=== PATIENT | female | born 1980 | race Caucasian/White ===

== ENCOUNTER 2017-12-06 09:02 | Inpatient (IN) | payer BC ==
[2017-12-06 09:09] VITALS: BMI 24.7
--- NOTE | 2017-12-06 12:05 | HP ---
COWS - Scale Resting Pulse: 0= [place] 80 or Below Sweatin= Chills/Flushing Restless Observation: 3= Extraneous Movement Pupil Size: 2= Moderately Dilated Bone or Joint Aches: 4=Acute Joint/Muscle Pain Runny Nose/ Eye Tearin= Constantly Teary/Runny GI Upset > 30mins: 1= Stomach Cramp Tremor Observation: 1= Tremor [place], Not Seen Yawning Observation: 2= >3x During Session Anxiety or Irritability: 1=Feels Anxious/Irritable Goose Flesh Skin: 0=Smooth Skin COWS Score: 19 Admission ROS S - HPI Chief Complaint: HEROIN WITHDRAWAL SX Allergies/Adverse Reactions: Allergies Allergy/AdvReac Type Severity Reaction Status Date / Time No Known Allergies Allergy Verified 12/06/17 09:30 History of Present Illness: 37 Y/O H/FEMALE WITH A HX OF HEROIN , STREET METHADONE AND CRACK DEPENDENCE SEEKING DETOX [place]. PT STATES THIS IS HER FIRST TIME HERE AND FIRST TIME IN DETOX. REPORTS "I TRIED TO STOP ON MY OWN BUT IT DID NOT WORK". PT STATES HE WAS AT [facility] LAST NIGHT FOR WITHDRAWAL SX AND DISCHARGED THIS MORNING FOR REFERRAL TO DETOX. DENIES ANY MEDICAL OR PSYCH HX. Exam Limitations: No Limitations - Ebola screening Have you traveled outside of the country in the last 21 days: No (N) Have you had contact with anyone from an Ebola affected area: No Have you been sick,other than usual withdrawal symptoms: No Do you have a fever: No - Review of Systems Constitutional: Chills, Night Sweats, Unintentional Wgt. Loss EENT: reports: Tearing, Nose Congestion, Dental Problems (MISSING TEETH) Respiratory: reports: No Symptoms reported Cardiac: reports: Lightheadedness GI: reports: Constipated, Diarrhea, Nausea, Poor Fluid Intake, Vomiting : reports: No Symptoms Reported Musculoskeletal: reports: Back Pain, Joint Pain, Muscle Pain Integumentary: reports: Bruising Neuro: reports: Headache, Unsteady Gait (WHEN HIGH ON DRUGS), Dizziness Endocrine: reports: No Symptoms Reported Hematology: reports: No Symptoms Reported Psychiatric: reports: Orientated x3 Other Systems: Reviewed and Negative Patient History - Patient Medical History Hx Anemia: No Hx Asthma: No Hx Chronic Obstructive Pulmonary Disease (COPD): No Hx Cardiac Disorders: No Hx Hypertension: No Hx Hypercholesterolemia: No HX Cerebrovascular Accident: No Hx Seizures: No Hx Diabetes: No Hx Gastrointestinal Disorders: No Hx Genitourinary Disorders: No Hx Sexually Transmitted Disorders: No Hx Renal Disease (ESRD): No Hx Thyroid Disease: No Hx Human Immunodeficiency Virus (HIV): No (NEGATIVE HX) Hx Hepatitis C: Yes (NOT TREATED) Hx Depression: No Hx Suicide Attempt: No (DENIES S/I) Hx Bipolar Disorder: No Hx Schizophrenia: No - Patient Surgical History Past Surgical History: No Hx Neurologic Surgery: No Hx Cataract Extraction: No Hx Cardiac Surgery: No Hx Lung Surgery: No Hx Breast Surgery: No Hx Breast Biopsy: No Hx Abdominal Surgery: No Hx Appendectomy: No Hx Cholecystectomy: No Hx Genitourinary Surgery: No Hx Section: No Hx Orthopedic Surgery: No Hx Hysterectomy: No Anesthesia Reaction: No - PPD History Previous Implant?: Yes Documented Results: Negative w/o proof Implanted On Prior [facility] Admission?: No PPD to be Administered?: Yes - Reproductive History Patient is a Female of Child Bearing Age (11 -55 yrs old): Yes Last Menstrual Period: 09/28/17 Patient : No - Smoking Cessation Smoking history: Current every day smoker Have you smoked in the past 12 months: Yes Aproximately how many cigarettes per day: 20 Hx Chewing Tobacco Use: No Initiated information on smoking cessation: Yes 'Breaking Loose' booklet given: 12/06/17 - Substance & Tx. History Hx Alcohol Use: No (DENIES) Hx Substance Use: Yes (HEROIN/CRACK) Substance Use Type: Cocaine, Heroin Hx Substance Use Treatment: No (DENIES PREVIOUS TX) - Substances Abused Heroin Route: Injection Frequency: Daily Amount used: 10 bags Age of first use: 26 Date of Last Use: 12/05/17 Crack Route: Smoking Frequency: Daily Amount used: $200 Age of first use: 13 Date of Last Use: 12/05/17 street methadone Route: Oral Frequency: 1-3 times last 30 days Amount used: 30 mg. Age of first use: 15 Date of Last Use: 12/05/17 Family Disease History - Family Disease History Family History: Denies Admission Physical Exam BHS - Vital Signs Vital Signs: Vital Signs - 24 hr 12/06/17 09:06 Temperature 97.4 F L Pulse Rate 69 Respiratory 20 Rate Blood Pressure 112/69 - Physical General Appearance: Yes: Moderate Distress, Thin, Irritable HEENTM: Yes: EOMI, Normocephalic, DAVID, Pharynx Normal, Nasal Congestion, Other (TEARY EYES) Respiratory: Yes: Chest Non-Tender, Lungs Clear, Normal Breath Sounds, No Respiratory Distress Neck: Yes: No masses,lesions,Nodules, Supple, Trachea in good position Breast: Yes: Breast Exam Deferred Cardiology: Yes: Regular Rhythm, Regular Rate, S1, S2 Abdominal: Yes: Normal Bowel Sounds, Non Tender, Flat, Soft Genitourinary: Yes: Other (N/C) Back: Yes: Within Normal Limits Musculoskeletal: Yes: full range of Motion, Gait Steady Extremities: Yes: Normal Range of Motion, Non-Tender 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: 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: 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, Fully Oriented, Alert, Motor Strength 5/5 Integumentary: Yes: Dry, Warm, Track [place] (FOREARMS-NO REDNESS OR SWELLING) Lymphatic: Yes: Within Normal Limits, Other (SCARS ON LOWER EXTREMITIES) - Diagnostic (1) Opioid dependence with withdrawal Current Visit: Yes Status: Acute (2) Weight decrease Current Visit: Yes Status: Acute (3) IVDU (intravenous drug user) Current Visit: Yes Status: Chronic Comment: TRACKS ON EXTREMITIES Cleared for Admission [facility] - Detox or Rehab [facility] Level of Care: Medically Managed Detox Regimen/Protocol: Methadone [facility] Breath Alcohol Content Breath Alcohol Content: 0 Urine Pregancy Test - Result Urine Test Results: Negative- NO Line Present Urine Drug Screen - Results Drug Screen Negative: No Urine Drug Screen Results: ALINE-Cocaine, OPI-Opiates, MTD-Methadone
[2017-12-06] MEDS ORDERED: MAG HYDROX/AL HYDROX/SIMETH 30 ML UNIT-DOSE CUP PO PRN (12:15)
[2017-12-06] MEDS ORDERED: ACETAMINOPHEN 325 MG TABLET (FP) PO PRN (12:15)
[2017-12-06] MEDS ORDERED: MENTHOL/PHENOL 1 EACH UD MM PRN (12:15)
[2017-12-06] MEDS ORDERED: guaiFENesin/D-METHORPHAN HB 10 ML UNIT-DOSE CUPS PO PRN (12:15)
[2017-12-06] MEDS ORDERED: NICOTINE POLACRILEX 4 MG GUM BUC PRN (12:15)
[2017-12-06] MEDS ORDERED: P-EPHED 60MG/TRIPROLIDI 2.5MG TABLET PO PRN (12:15)
[2017-12-06] MEDS ORDERED: IBUPROFEN 400 MG TABLET (FP) PO PRN (12:15)
[2017-12-06] MEDS ORDERED: MAGNESIUM HYDROX 2400MG/30ML ORAL SUSPENSION 30 ML CUP PO PRN (12:15)
[2017-12-06] MEDS ORDERED: MAGNESIUM CITRATE 300 ML BOTTLE PO PRN (12:15)
[2017-12-06] MEDS ORDERED: LOPERAMIDE HCL 2 MG CAPSULE PO PRN (12:15)
[2017-12-06] MEDS ORDERED: METHADONE HCL 10 MG TABLET (FOR DETOX USE ONLY) PO ONE ×2 (12:20→23:00)
[2017-12-06] MEDS: diazePAM 5 MG TABLET PO PRN ×2 (13:01→22:27)
[2017-12-06] MEDS: NICOTINE 21 MG/24 HOURS TOPICAL PATCH TD SCH (13:09)
[2017-12-06 18:38] LABS: URINE APPEARANCE CLEAR; URINE BILIRUBIN NEGATIVE (<2.0 mg/dL); URINE BLOOD 1+ (NEGATIVE); URINE COLOR AMBER; URINE GLUCOSE (UA) NEGATIVE (NEGATIVE); URINE KETONE NEGATIVE (NEGATIVE); URINE LEUK ESTERASE NEGATIVE (NEGATIVE); URINE NITRITE NEGATIVE (NEGATIVE); URINE PROTEIN NEGATIVE (NEGATIVE); URINE UROBILINOGEN 4.0 E.U/dl mg/dL (0.2-1.0)
[2017-12-06 18:46] LABS: EPI CELLS RARE /HPF (FEW); URINE HYALINE CAST 5 /lpf; URINE MUCUS MANY
[2017-12-06] MEDS ORDERED: THIAMINE HCL 100 MG TABLET (FP) PO SCH (22:00)
[2017-12-06] MEDS ORDERED: MELATONIN 5 MG TABLETS PO PRN (22:00)
--- NOTE | 2017-12-07 09:50 | EKG ---
Test Reason : Blood Pressure : / mmHG Vent. Rate : 065 BPM Atrial Rate : 065 BPM P-R Int : 150 ms QRS Dur : 096 ms QT Int : 438 ms P-R-T Axes : 042 035 035 degrees QTc Int : 455 ms NORMAL SINUS RHYTHM WITH SINUS ARRHYTHMIA INCOMPLETE RIGHT BUNDLE BRANCH BLOCK NO PREVIOUS ECGS AVAILABLE Confirmed by ASAEL CUELLO MD ([id number]) on 12/07/2017 9:50:18 AM Referred By: Confirmed By:ASAEL CUELLO MD
[2017-12-07 09:51] LABS: HEMATOCRIT 39.6 % (32.4-45.2); HEMOGLOBIN 12.4 GM/dL (10.7-15.3); MCH 23.8 pg (25.7-33.7); MCHC 31.4 g/dl (32.0-36.0); MEAN CELL VOLUME 75.7 fl (80-96); MEAN PLT VOLUME 9.3 fl (7.5-11.1); PLATELET COUNT 211 K/MM3 (134-434); RBC 5.22 M/mm3 (3.60-5.2); WHITE BLOOD COUNT 4.7 K/mm3 (4.0-10.0)
[2017-12-07] MEDS ORDERED: PRENATAL VITAMINS W/ FOLIC ACID TABLET (FP) PO SCH (10:00)
[2017-12-07] MEDS ORDERED: METHADONE HCL 10 MG TABLET (FOR DETOX USE ONLY) PO ONE (10:00)
[2017-12-07 10:01] LABS: CHLORIDE 109 mmol/L (98-107); POTASSIUM 4.6 mmol/L (3.5-5.1); SODIUM 143 mmol/L (136-145)
[2017-12-07] MEDS: diazePAM 5 MG TABLET PO PRN (10:37)
[2017-12-07] MEDS: NICOTINE 21 MG/24 HOURS TOPICAL PATCH TD SCH (10:38)
[2017-12-07 10:50] LABS: ALBUMIN 2.9 g/dl (3.4-5.0); ALK PHOS 82 U/L (45-117); ANION GAP 9 (8-16); BILIRUBIN,TOTAL 0.4 mg/dL (0.2-1.0); BLOOD UREA NITROGEN 13 mg/dL (7-18); CALCIUM 8.9 mg/dL (8.5-10.1); CO2 25 mmol/L (21-32); CREATININE 0.8 mg/dL (0.55-1.02); GLUCOSE,RANDOM 94 mg/dL (74-106); SGOT/AST 24 U/L (15-37); SGPT/ALT 26 U/L (12-78)
[2017-12-07 11:18] LABS: SICKLE CELL SCREEN NEGATIVE (NEGATIVE)
--- NOTE | 2017-12-07 14:05 | PN ---
BHS COWS - Scale Resting Pulse: 0= [place] 80 or Below Sweatin= Chills/Flushing Restless Observation: 3= Extraneous Movement Pupil Size: 0= Normal to Room Light Bone or Joint Aches: 4=Acute Joint/Muscle Pain Runny Nose/ Eye Tearin= Nasal Congestion GI Upset > 30mins: 1= Stomach Cramp Tremor Observation of Outstretched Hands: 2= Slight Tremor Visible Yawning Observation: 1= 1-2x During Session Anxiety or Irritability: 2=Irritable/Anxious Goose Flesh Skin: 0=Smooth Skin COWS Score: 15 BHS Progress Note (SOAP) Subjective: ANXIETY,SWEATS,ABDOMINAL CRAMPS/SPASMS,INTERMITTENT SLEEP.
[2017-12-07 18:03] VITALS: BP 97/60; PULSE 63; TEMP 99
--- NOTE | 2017-12-07 18:50 | PN ---
S Progress Note Note: Spoke with patient and discussed reasons for leaving AMA. Patient states has family reasons and did not go into detail. Discussed decreased tolerance and potential for overdose and patient states is aware and will be fine, based on past experience.
--- NOTE | 2017-12-07 18:55 | DS ---
[facility] Detox Discharge Summary Admission Date: 12/06/17 Discharge Date: 12/07/17 - History Present History: Opioid Dependence Additional Comments: Insists on leaving AMA despite review of detox protocol and review of potential relapse and overdose risks. - Physical Exam Results Vital Signs: Vital Signs Temperature 99.0 F 12/07/17 18:03 Pulse Rate 63 12/07/17 18:03 Respiratory Rate 18 12/07/17 18:03 Blood Pressure 97/60 12/07/17 18:03 O2 Sat by Pulse Oximetry (%) - Treatment Hospital Course: Detox Protocol Followed (Did not complete detox) - Medication Discharge Medications: Ambulatory Orders NK [No Known Home Medication] 12/06/17 - Diagnosis (1) Opioid dependence with withdrawal Current Visit: Yes Status: Acute - AMA Did Patient Leave Against Medical Advice: Yes
[2017-12-08] MEDS ORDERED: METHADONE HCL 5 MG TABLET (FOR DETOX USE ONLY) PO ONE (10:00)
[2017-12-09] MEDS ORDERED: METHADONE HCL 5 MG TABLET (FOR DETOX USE ONLY) PO ONE (10:00)
[2017-12-10] MEDS ORDERED: METHADONE HCL 10 MG TABLET (FOR DETOX USE ONLY) PO ONE (10:00)
[2017-12-11] MEDS ORDERED: METHADONE HCL 5 MG TABLET (FOR DETOX USE ONLY) PO ONE (06:00)
== END 2017-12-07 07:20 | disposition left against medical advice (07) | DRG 770 ==
LOC: YASAS 09:02 → Y6N 12:14
PROVIDERS: ADMIT Family Medicine Addiction Medicine; ATTEND Family Medicine Addiction Medicine
PROC: HZ2ZZZZ Detoxification Services for Substance Abuse Treatment (ICD-10-PCS; principal; 2017-12-06)
DX: F11.23 Opioid dependence with withdrawal (principal); F14.20 Cocaine dependence, uncomplicated; F17.210 Nicotine dependence, cigarettes, uncomplicated; B18.2 Chronic viral hepatitis C; Z87.898 Personal history of other specified conditions
CPT/HCPCS: 36415; 80053; 81003; 81015; 85027; 85660; 86593; 93005; 93010

== ENCOUNTER 2018-05-22 10:25 | Inpatient (IN) | payer BC ==
[2018-05-22 11:30] VITALS: BMI 27.6
--- NOTE | 2018-05-22 12:21 | HP ---
COWS - Scale Resting Pulse: 0= [place] 80 or Below Sweatin= Chills/Flushing Restless Observation: 3= Extraneous Movement Pupil Size: 1= Pupils >than Normal Bone or Joint Aches: 1= Mild Discomfort Runny Nose/ Eye Tearin= Runny Nose/Eyes GI Upset > 30mins: 1= Stomach Cramp Tremor Observation: 1= Tremor [place], Not Seen Yawning Observation: 0= None Anxiety or Irritability: 2=Irritable/Anxious Goose Flesh Skin: 0=Smooth Skin COWS Score: 12 CIWA Score Nausea/Vomitin Muscle Tremors: 1-None Visible, but [place] Anxiety: 2 Agitation: 2 Paroxysmal Sweats: 2 Orientation: 0-Oriented Tacttile Disturbances: 2-Mild Itch/Numbness/Burn Auditory Disturbances: 0-None Visual Disturbances: 0-None Headache: 0-None Present CIWA-Ar Total Score: 11 - Admission Criteria [facility]ASAS Guidelines: Admission for Medically Managed Detox: Requires at least one of the followin. CIWA greater than 12 2. Seizures within the past 24 hours 3. Delirium tremens within the past 24 hours 4. Hallucinations within the past 24 hours 5. Acute intervention needed for co occurring medical disorder 6. Acute intervention needed for co occurring psychiatric disorder 7. Severe withdrawal that cannot be handled at a lower level of care (continued vomiting, continued diarrhea, abnormal vital signs) requiring intravenous medication and/or fluids 8. Patient presents the following: CIWA greater than 12 Admission Criteria Met: Admission criteria met Admission ROS [facility] Chief Complaint: I need to detox from drugs Allergies/Adverse Reactions: Allergies Allergy/AdvReac Type Severity Reaction Status Date / Time hydromorphone [From Dilaudid] Allergy Severe Itching Verified 05/22/18 11:36 meperidine [From Demerol] Allergy Severe Itching Verified 05/22/18 11:36 History of Present Illness: 38 y/o f pt with h/o polysubstance dep starting around age 15 seeking detox. Exam Limitations: No Limitations - Ebola screening Have you traveled outside of the country in the last 21 days: No Have you had contact with anyone from an Ebola affected area: No Have you been sick,other than usual withdrawal symptoms: No - Review of Systems Constitutional: Changes in sleep, Unintentional Wgt. Loss (over one and a half years) EENT: reports: Nose Congestion (rhinorrea) Respiratory: reports: Other (h/o rt chest tube for abscess) Cardiac: reports: Other (h/o endocarditis) GI: reports: Indigestion, Abdominal cramping : reports: No Symptoms Reported Musculoskeletal: reports: Muscle Pain (leg pains) Integumentary: reports: Lesions (excoriations over ,face arms and chest), Pruritus, Rash Neuro: reports: No Symptoms reported Endocrine: reports: No Symptoms Reported Hematology: reports: No Symptoms Reported Psychiatric: reports: Anxious, Depressed Other Systems: Reviewed and Negative Patient History - Patient Medical History Hx Anemia: No Hx Asthma: No Hx Chronic Obstructive Pulmonary Disease (COPD): No Hx Cancer: No Hx Cardiac Disorders: No Hx Congestive Heart Failure: No Hx Hypertension: No Hx Hypercholesterolemia: No Hx Pacemaker: No HX Cerebrovascular Accident: No Hx Seizures: No Hx Diabetes: No Hx Gastrointestinal Disorders: No Hx Liver Disease: No Hx Genitourinary Disorders: No Hx Sexually Transmitted Disorders: No Hx Renal Disease (ESRD): No Hx Thyroid Disease: No Hx Human Immunodeficiency Virus (HIV): No (2017 NEGATIVE ) Hx Hepatitis C: Yes (NOT TREATED) Hx Depression: Yes Hx Suicide Attempt: Yes (Pt tried to overdose in 2013) Hx Bipolar Disorder: No Hx Schizophrenia: No - Patient Surgical History Past Surgical History: No Hx Neurologic Surgery: No Hx Cataract Extraction: No Hx Cardiac Surgery: No Hx Lung Surgery: Yes (R chest tube for lung abscess in 2014 [facility]) Hx Breast Surgery: No Hx Breast Biopsy: No Hx Abdominal Surgery: No Hx Appendectomy: No Hx Cholecystectomy: Yes (1997) Hx Genitourinary Surgery: No Hx Section: No Hx Orthopedic Surgery: No Hx Hysterectomy: No Anesthesia Reaction: No - PPD History Previous Implant?: Yes Documented Results: Negative w/proof Implanted On Prior R Admission?: Yes Date: 12/08/17 PPD to be Administered?: No - Reproductive History Patient is a Female of Child Bearing Age (11 -55 yrs old): Yes Last Menstrual Period: 09/28/17 LMP comment: periods cease with heroin use Patient : No - Smoking Cessation Smoking history: Current every day smoker Have you smoked in the past 12 months: Yes Aproximately how many cigarettes per day: 20 Hx Chewing Tobacco Use: No Initiated information on smoking cessation: Yes 'Breaking Loose' booklet given: 05/22/18 - Substance & Tx. History Hx Alcohol Use: Yes Hx Substance Use: Yes Substance Use Type: Alcohol, Cocaine, Heroin Hx Substance Use Treatment: Yes ([facility]) - Substances Abused Alcohol Route: Oral Frequency: Daily Amount used: 1-2 pints vodka Age of first use: 11 Date of Last Use: 05/22/18 Heroin Route: Injection Frequency: Daily Amount used: 20 bags Age of first use: 15 Date of Last Use: 05/22/18 Crack Route: Smoking Frequency: Daily Amount used: $100-150 Age of first use: 15 Date of Last Use: 05/22/18 Family Disease History - Family Disease History Family Disease History: [place]: Grandparent (stomach) Admission Physical Exam BHS - Vital Signs Vital Signs: Vital Signs - 24 hr 05/22/18 11:27 Temperature 96.9 F L Pulse Rate 74 Respiratory 20 Rate Blood Pressure 118/72 38 y/o f pt who is disheveled , restless but aox3 with multiple excoriated areas -face , arms ,chest and hands . - Physical General Appearance: Yes: Disheveled, Irritable, Anxious HEENTM: Yes: EOMI, Hearing grossly Normal, Normocephalic, Normal Voice, DAVID Respiratory: Yes: Chest Non-Tender, Lungs Clear, Normal Breath Sounds, No Respiratory Distress, Surgical Scar (rt mid axillary line - C-Tube) Neck: Yes: Supple, Trachea in good position Breast: Yes: Breast Exam Deferred Cardiology: Yes: Regular Rhythm, Regular Rate, S1, S2 Abdominal: Yes: Non Tender, Flat, Soft, Increased Bowel Sounds, Surgical Scar ( rt upper quad-diagonal) Genitourinary: Yes: Frequency Back: Yes: Decreased Range of Motion Musculoskeletal: Yes: Back pain, Muscle Pain Extremities: Yes: Tremors 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: 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: 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, Fully Oriented, Alert, Motor Strength 5/5 Integumentary: Yes: Erythema (excoriated , denuded areas , multiple track choe , arms, hands), Moist, Rash (t.pedis), Track [place] Lymphatic: Yes: Adenopathy - Diagnostic (1) Chronic alcoholism Current Visit: Yes Status: Chronic (2) Crack cocaine use Current Visit: Yes Status: Chronic (3) Opioid dependence with withdrawal Current Visit: Yes Status: Chronic (4) IVDU (intravenous drug user) Current Visit: Yes Status: Chronic Comment: TRACKS ON EXTREMITIES (5) Bipolar 1 disorder Current Visit: Yes Status: Chronic (6) H/O bacterial endocarditis Current Visit: No Status: Resolved (7) Drug-induced pruritus Current Visit: Yes Status: Chronic (8) Tinea pedis Current Visit: Yes Status: Acute Cleared for Admission [facility] - Detox or Rehab [facility] Level of Care: Medically Managed Detox Regimen/Protocol: Methadone/Valium Claeared for Rehab Admission: No S Breath Alcohol Content Breath Alcohol Content: 0 Urine Pregancy Test - Result Urine Test Results: Negative- NO Line Present Urine Drug Screen - Results Drug Screen Negative: No Urine Drug Screen Results: ALINE-Cocaine, OPI-Opiates, FEN-Fentanyl
[2018-05-22] MEDS ORDERED: guaiFENesin/D-METHORPHAN HB 10 ML UNIT-DOSE CUPS PO PRN (12:50)
[2018-05-22] MEDS ORDERED: IBUPROFEN 400 MG TABLET (FP) PO PRN (12:50)
[2018-05-22] MEDS ORDERED: ACETAMINOPHEN 325 MG TABLET (FP) PO PRN (12:50)
[2018-05-22] MEDS ORDERED: hydrOXYzine PAMOATE 25 MG CAPSULE (FP) PO PRN (12:50)
[2018-05-22] MEDS ORDERED: MAGNESIUM CITRATE 300 ML BOTTLE PO PRN (12:50)
[2018-05-22] MEDS ORDERED: MAGNESIUM HYDROX 2400MG/30ML ORAL SUSPENSION 30 ML CUP PO PRN (12:50)
[2018-05-22] MEDS ORDERED: P-EPHED 60MG/TRIPROLIDI 2.5MG TABLET PO PRN (12:50)
[2018-05-22] MEDS ORDERED: LOPERAMIDE HCL 2 MG CAPSULE PO PRN (12:50)
[2018-05-22] MEDS ORDERED: MAG HYDROX/AL HYDROX/SIMETH 30 ML UNIT-DOSE CUP PO PRN (12:50)
[2018-05-22] MEDS ORDERED: MENTHOL/PHENOL 1 EACH UD MM PRN (12:50)
[2018-05-22] MEDS ORDERED: diazePAM 5 MG TABLET PO PRN (12:50)
[2018-05-22] MEDS ORDERED: NICOTINE POLACRILEX 4 MG GUM BUC PRN (12:50)
[2018-05-22] MEDS ORDERED: diazePAM 5 MG TABLET PO SCH (14:00)
[2018-05-22] MEDS ORDERED: diazePAM 5 MG TABLET PO ONE (14:30)
[2018-05-22] MEDS ORDERED: METHADONE HCL 10 MG TABLET (FOR DETOX USE ONLY) PO ONE ×2 (14:30→23:00)
[2018-05-22] MEDS ORDERED: chlordiazePOXIDE HCL 25 MG CAPSULE PO PRN (15:43)
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
[2018-05-22] MEDS: chlordiazePOXIDE HCL 25 MG CAPSULE PO SCH ×2 (18:12→22:28)
[2018-05-22] MEDS: THIAMINE HCL 100 MG TABLET (FP) PO SCH (22:29)
[2018-05-22] MEDS: TOLNAFTATE 1% CREAM 15 GM TUBE TP SCH (22:38)
[2018-05-22] MEDS: BACITRACIN 0.9 GM PACKET TP SCH (22:38)
[2018-05-22 23:24] LABS: URINE APPEARANCE CLEAR; URINE BILIRUBIN NEGATIVE (<2.0 mg/dL); URINE COLOR YELLOW; URINE GLUCOSE (UA) NEGATIVE (NEGATIVE); URINE KETONE NEGATIVE (NEGATIVE); URINE LEUK ESTERASE NEGATIVE (NEGATIVE); URINE NITRITE NEGATIVE (NEGATIVE); URINE PROTEIN NEGATIVE (NEGATIVE); URINE UROBILINOGEN NEGATIVE mg/dL (0.2-1.0)
[2018-05-23] MEDS: chlordiazePOXIDE HCL 25 MG CAPSULE PO SCH ×4 (05:48→22:23)
[2018-05-23] MEDS ORDERED: METHADONE HCL 10 MG TABLET (FOR DETOX USE ONLY) PO SCH (10:00)
[2018-05-23] MEDS: PRENATAL VITAMINS W/ FOLIC ACID TABLET (FP) PO SCH (10:33)
[2018-05-23] MEDS: BACITRACIN 0.9 GM PACKET TP SCH ×2 (10:33→22:23)
[2018-05-23] MEDS: TOLNAFTATE 1% CREAM 15 GM TUBE TP SCH ×2 (10:34→22:23)
[2018-05-23] MEDS: NICOTINE 21 MG/24 HOURS TOPICAL PATCH TD SCH (10:34)
[2018-05-23 11:03] LABS: HEMATOCRIT 41.1 % (32.4-45.2); HEMOGLOBIN 12.4 GM/dL (10.7-15.3); MCHC 30.1 g/dl (32.0-36.0); MEAN CELL VOLUME 76.5 fl (80-96); MEAN PLT VOLUME 10.3 fl (7.5-11.1); PLATELET COUNT 226 K/MM3 (134-434); RBC 5.38 M/mm3 (3.60-5.2); RDW 16.7 % (11.6-15.6); WHITE BLOOD COUNT 4.9 K/mm3 (4.0-10.0)
--- NOTE | 2018-05-23 11:10 | PN ---
[facility] CIWA - CIWA Score Nausea/Vomitin-No Nausea/No Vomiting Muscle Tremors: 3 Anxiety: 3 Agitation: 3 Paroxysmal Sweats: 3 Orientation: 0-Oriented Tacttile Disturbances: 0-None Auditory Disturbances: 0-None Visual Disturbances: 0-None Headache: 0-None Present CIWA-Ar Total Score: 12 BHS COWS - Scale Resting Pulse: 0= [place] 80 or Below Sweatin=Flushed/Facial Moisture Restless Observation: 1= Difficult to Sit Still Pupil Size: 0= Normal to Room Light Bone or Joint Aches: 1= Mild Discomfort Runny Nose/ Eye Tearin= Nasal Congestion GI Upset > 30mins: 2= Nausea/Diarrhea Tremor Observation of Outstretched Hands: 2= Slight Tremor Visible Yawning Observation: 2= >3x During Session Anxiety or Irritability: 2=Irritable/Anxious Goose Flesh Skin: 0=Smooth Skin COWS Score: 13 S Progress Note (SOAP) Subjective: sweats shakes tired irritable agitation interrupted sleep body aches Objective: 05/23/18 11:09 Vital Signs Temperature 97.7 F 05/23/18 10:34 Pulse Rate 73 05/23/18 10:34 Respiratory Rate 18 05/23/18 10:34 Blood Pressure 120/76 05/23/18 10:34 O2 Sat by Pulse Oximetry (%) Laboratory Tests 05/22/18 05/23/18 22:00 07:40 WBC 4.9 RBC 5.38 H Hgb 12.4 Hct 41.1 MCV 76.5 L MCH 23.0 L MCHC 30.1 L RDW 16.7 H Plt Count 226 MPV 10.3 D Urine Color Yellow Urine Appearance Clear Urine pH 6.0 Ur Specific [place] 1.019 Urine Protein Negative Urine Glucose (UA) Negative Urine Ketones Negative Urine Blood Negative Urine Nitrite Negative Urine Bilirubin Negative Urine Urobilinogen Negative Ur Leukocyte Esterase Negative labs pending aaox3 ambulating no acute distress Assessment: 05/23/18 11:09 withdrawal sx Plan: continue detox increase fluids labs pending
[2018-05-23 11:15] LABS: ALK PHOS 114 U/L (45-117); ANION GAP 8 MMOL/L (8-16); BILIRUBIN,TOTAL 0.3 mg/dL (0.2-1); BLOOD UREA NITROGEN 19 mg/dL (7-18); CALCIUM 8.3 mg/dL (8.5-10.1); CHLORIDE 108 mmol/L (98-107); CO2 24 mmol/L (21-32); CREATININE 0.9 mg/dL (0.55-1.3); GLUCOSE,RANDOM 86 mg/dL (74-106); POTASSIUM 4.6 mmol/L (3.5-5.1); SGOT/AST 20 U/L (15-37); SGPT/ALT 21 U/L (13-61); SODIUM 139 mmol/L (136-145); TOT PROT 6.6 g/dl (6.4-8.2)
[2018-05-23 11:44] LABS: SICKLE CELL SCREEN NEGATIVE (NEGATIVE)
[2018-05-23 13:19] LABS: RPR REACTIVE 1:2 (NONREACTIVE)
[2018-05-23] MEDS: MELATONIN 5 MG TABLETS PO PRN (22:23)
[2018-05-23] MEDS: THIAMINE HCL 100 MG TABLET (FP) PO SCH (22:23)
[2018-05-24] MEDS: chlordiazePOXIDE HCL 25 MG CAPSULE PO SCH ×2 (06:02→10:22)
[2018-05-24 09:52] LABS: TREPONEMA ANTIBODY REACTIVE (NONREACTIVE)
[2018-05-24] MEDS ORDERED: diazePAM 5 MG TABLET PO SCH (10:00)
[2018-05-24] MEDS: BACITRACIN 0.9 GM PACKET TP SCH ×2 (10:22→22:25)
[2018-05-24] MEDS: PRENATAL VITAMINS W/ FOLIC ACID TABLET (FP) PO SCH (10:22)
[2018-05-24] MEDS: TOLNAFTATE 1% CREAM 15 GM TUBE TP SCH ×2 (10:22→22:25)
[2018-05-24] MEDS: METHADONE HCL 5 MG TABLET (FOR DETOX USE ONLY) PO SCH (10:22)
[2018-05-24] MEDS: NICOTINE 21 MG/24 HOURS TOPICAL PATCH TD SCH (10:23)
--- NOTE | 2018-05-24 11:27 | PN ---
[facility] CIWA - CIWA Score Nausea/Vomitin-No Nausea/No Vomiting Muscle Tremors: 3 Anxiety: 3 Agitation: 3 Paroxysmal Sweats: 3 Orientation: 0-Oriented Tacttile Disturbances: 0-None Auditory Disturbances: 0-None Visual Disturbances: 0-None Headache: 0-None Present CIWA-Ar Total Score: 12 S COWS - Scale Resting Pulse: 0= [place] 80 or Below Sweatin=Flushed/Facial Moisture Restless Observation: 0= Sits Still Pupil Size: 0= Normal to Room Light Bone or Joint Aches: 1= Mild Discomfort Runny Nose/ Eye Tearin= Nasal Congestion GI Upset > 30mins: 0= None Tremor Observation of Outstretched Hands: 2= Slight Tremor Visible Yawning Observation: 2= >3x During Session Anxiety or Irritability: 1=Feels Anxious/Irritable Goose Flesh Skin: 0=Smooth Skin COWS Score: 9 S Progress Note (SOAP) Subjective: tired irritable body aches sweats chills Objective: 05/24/18 11:25 Vital Signs Temperature 99.3 F 05/24/18 10:15 Pulse Rate 77 05/24/18 10:15 Respiratory Rate 18 05/24/18 10:15 Blood Pressure 100/59 L 05/24/18 10:15 O2 Sat by Pulse Oximetry (%) Laboratory Tests 05/22/18 05/23/18 05/23/18 22:00 07:40 07:40 WBC 4.9 RBC 5.38 H Hgb 12.4 Hct 41.1 MCV 76.5 L MCH 23.0 L MCHC 30.1 L RDW 16.7 H Plt Count 226 MPV 10.3 D Sickle Cell Screen Negative Sodium Potassium Chloride Carbon Dioxide Anion Gap BUN Creatinine Creat Clearance w eGFR Random Glucose Calcium Total Bilirubin AST ALT Alkaline Phosphatase Total Protein Albumin Urine Color Yellow Urine Appearance Clear Urine pH 6.0 Ur Specific [place] 1.019 Urine Protein Negative Urine Glucose (UA) Negative Urine Ketones Negative Urine Blood Negative Urine Nitrite Negative Urine Bilirubin Negative Urine Urobilinogen Negative Ur Leukocyte Esterase Negative RPR Titer T.pallidum Ab (MHA) HIV 1&2 Antibody Screen Negative HIV P24 Antigen Negative 05/23/18 05/23/18 07:40 07:40 WBC RBC Hgb Hct MCV MCH MCHC RDW Plt Count MPV Sickle Cell Screen Sodium 139 Potassium 4.6 Chloride 108 H Carbon Dioxide 24 Anion Gap 8 BUN 19 H Creatinine 0.9 Creat Clearance w eGFR > 60 Random Glucose 86 Calcium 8.3 L Total Bilirubin 0.3 AST 20 ALT 21 Alkaline Phosphatase 114 Total Protein 6.6 Albumin 3.0 L Urine Color Urine Appearance Urine pH Ur Specific [place] Urine Protein Urine Glucose (UA) Urine Ketones Urine Blood Urine Nitrite Urine Bilirubin Urine Urobilinogen Ur Leukocyte Esterase RPR Titer Reactive 1:2 H D T.pallidum Ab (MHA) non Reactive HIV 1&2 Antibody Screen HIV P24 Antigen pt states she doesnt remember ever having been exposed to syphilis no tx required at this time aaox3 lying in bed no acute distress Assessment: 05/24/18 11:26 withdrawal sx Plan: continue detox increase fluids
[2018-05-24] MEDS ORDERED: FLU VACCINE QUAD 60 MCG/0.5 ML (MDV 18-19) IM ONE (12:00)
[2018-05-24] MEDS: chlordiazePOXIDE 5 MG CAPSULE PO SCH ×2 (17:33→22:25)
[2018-05-24] MEDS: THIAMINE HCL 100 MG TABLET (FP) PO SCH (22:25)
[2018-05-24] MEDS: MELATONIN 5 MG TABLETS PO PRN (22:25)
[2018-05-25] MEDS: chlordiazePOXIDE 5 MG CAPSULE PO SCH ×2 (05:27→10:05)
[2018-05-25 06:32] VITALS: BP 107/65; PULSE 74; TEMP 97.3
[2018-05-25] MEDS: BACITRACIN 0.9 GM PACKET TP SCH (10:00)
[2018-05-25] MEDS: NICOTINE 21 MG/24 HOURS TOPICAL PATCH TD SCH (10:05)
[2018-05-25] MEDS: METHADONE HCL 5 MG TABLET (FOR DETOX USE ONLY) PO SCH (10:05)
[2018-05-25] MEDS: PRENATAL VITAMINS W/ FOLIC ACID TABLET (FP) PO SCH (10:05)
[2018-05-25] MEDS: TOLNAFTATE 1% CREAM 15 GM TUBE TP SCH (10:05)
--- NOTE | 2018-05-25 11:41 | PN ---
[facility] Progress Note Note: PT WALKED UP TO PROVIDER STATING "I WANT TO LEAVE, THEY HAVE MY CLOTHES LOCKED UP" WHEN PROVIDER ASKED WHY SHE WANTED TO LEAVE OR IF ANYTHING CAN BE DONE TO HELP/ PREVENT IT, PT REPLIED "I WANT TO LEAVE AND THAT'S IT, AM NOT DISCUSSING IT". SHE DENIED SI/HI DENIES ANY COMPLAINT ANXIOUS, NO RESP NOR ACUTE DISTRESS NOTED
--- NOTE | 2018-05-25 11:50 | DS ---
[facility] Detox Discharge Summary Admission Date: 05/22/18 Discharge Date: 05/25/18 - History Additional Comments: PT SIGNING OUT AMA FROM UNIT PLS SEE PROGRESS NOTE DENIES HOME MEDS - Physical Exam Results Vital Signs: Vital Signs Temperature 97.3 F L 05/25/18 06:00 Pulse Rate 74 05/25/18 06:00 Respiratory Rate 18 05/25/18 06:00 Blood Pressure 107/65 05/25/18 06:00 O2 Sat by Pulse Oximetry (%) - Medication Discharge Medications: Ambulatory Orders NK [No Known Home Medication] 12/06/17 - Diagnosis (1) Alcohol dependence Current Visit: Yes Status: Acute Qualifiers: Substance use status: uncomplicated Qualified Code(s): F10.20 - Alcohol dependence, uncomplicated (2) Cocaine dependence Current Visit: Yes Status: Acute Qualifiers: Substance use status: uncomplicated Qualified Code(s): F14.20 - Cocaine dependence, uncomplicated (3) Insomnia Current Visit: Yes Status: Acute (4) Substance induced mood disorder Current Visit: Yes Status: Acute (5) Tinea pedis Current Visit: Yes Status: Acute Qualifiers: Laterality: bilateral Qualified Code(s): B35.3 - Tinea pedis (6) Bipolar 1 disorder Current Visit: Yes Status: Chronic (7) Crack cocaine use Current Visit: Yes Status: Chronic (8) Drug-induced pruritus Current Visit: Yes Status: Chronic (9) IVDU (intravenous drug user) Current Visit: Yes Status: Chronic (10) Nicotine dependence Current Visit: Yes Status: Chronic Qualifiers: Nicotine product type: cigarettes Substance use status: uncomplicated Qualified Code(s): F17.210 - Nicotine dependence, cigarettes, uncomplicated (11) Opioid dependence with withdrawal Current Visit: Yes Status: Chronic - AMA Did Patient Leave Against Medical Advice: Yes
[2018-05-25] MEDS ORDERED: chlordiazePOXIDE HCL 10 MG CAPSULE PO SCH (17:00)
[2018-05-26] MEDS ORDERED: METHADONE HCL 10 MG TABLET (FOR DETOX USE ONLY) PO SCH (10:00)
[2018-05-26] MEDS ORDERED: diazePAM 5 MG TABLET PO SCH (10:00)
[2018-05-27] MEDS ORDERED: METHADONE HCL 5 MG TABLET (FOR DETOX USE ONLY) PO SCH (06:00)
== END 2018-05-25 10:05 | disposition left against medical advice (07) | DRG 770 ==
LOC: YASAS 10:25 → Y3N 13:45 → Y6N 13:47
PROC: HZ2ZZZZ Detoxification Services for Substance Abuse Treatment (ICD-10-PCS; principal; 2018-05-22)
DX: F11.23 Opioid dependence with withdrawal (principal); F10.20 Alcohol dependence, uncomplicated; F14.20 Cocaine dependence, uncomplicated; F17.210 Nicotine dependence, cigarettes, uncomplicated; F31.89 Other bipolar disorder; F19.24 Other psychoactive substance dependence with psychoactive substance-induced mood disorder; G47.00 Insomnia, unspecified; B18.2 Chronic viral hepatitis C; B35.3 Tinea pedis; L29.8 Other pruritus; Z86.79 Personal history of other diseases of the circulatory system; Z91.5 Personal history of self-harm
CPT/HCPCS: 36415; 80053; 81003; 85027; 85660; 86593; 86780; 87389

== ENCOUNTER 2018-07-11 17:01 | Inpatient (IN) | payer BC ==
[2018-07-11 17:24] VITALS: BMI 27.4
--- NOTE | 2018-07-11 18:30 | HP ---
COWS - Scale Resting Pulse: 0= [place] 80 or Below Sweatin=Flushed/Facial Moisture Restless Observation: 1= Difficult to Sit Still Pupil Size: 0= Normal to Room Light Bone or Joint Aches: 2= Severe Diffuse Aches Runny Nose/ Eye Tearin= Runny Nose/Eyes GI Upset > 30mins: 1= Stomach Cramp Tremor Observation: 2= Slight Tremor Visible Yawning Observation: 2= >3x During Session Anxiety or Irritability: 2=Irritable/Anxious Goose Flesh Skin: 0=Smooth Skin COWS Score: 14 CIWA Score Nausea/Vomitin-No Nausea/No Vomiting Muscle Tremors: 4-Moderate,w/Arms Extend Anxiety: 4-Mod. Anxious/Guarded Agitation: 4-Moderately Restless Paroxysmal Sweats: 3 Orientation: 0-Oriented Tacttile Disturbances: 0-None Auditory Disturbances: 0-None Visual Disturbances: 0-None Headache: 0-None Present CIWA-Ar Total Score: 15 - Admission Criteria OASAS Guidelines: Admission for Medically Managed Detox: Requires at least one of the followin. CIWA greater than 12 2. Seizures within the past 24 hours 3. Delirium tremens within the past 24 hours 4. Hallucinations within the past 24 hours 5. Acute intervention needed for co occurring medical disorder 6. Acute intervention needed for co occurring psychiatric disorder 7. Severe withdrawal that cannot be handled at a lower level of care (continued vomiting, continued diarrhea, abnormal vital signs) requiring intravenous medication and/or fluids 8. Admission ROS S - [facility] Chief Complaint: I need to stop using drugs. Allergies/Adverse Reactions: Allergies Allergy/AdvReac Type Severity Reaction Status Date / Time hydromorphone [From Dilaudid] Allergy Severe Itching Verified 07/11/18 17:43 meperidine [From Demerol] Allergy Severe Itching Verified 07/11/18 17:43 History of Present Illness: pt is a 38yr old female with a history of alcohol and heroin dependence seeking detox for treatment. Exam Limitations: No Limitations - Ebola screening Have you traveled outside of the country in the last 21 days: No (N) Have you had contact with anyone from an Ebola affected area: No Have you been sick,other than usual withdrawal symptoms: No Do you have a fever: No - Review of Systems Constitutional: Chills, Diaphoresis, Night Sweats, Changes in sleep EENT: reports: Tearing, Nose Congestion, Dental Problems (missing teeth) Respiratory: reports: No Symptoms reported Cardiac: reports: No Symptoms Reported, Syncope GI: reports: Poor Appetite, Poor Fluid Intake, Indigestion, Abdominal cramping : reports: No Symptoms Reported Musculoskeletal: reports: Back Pain, Muscle Pain Integumentary: reports: Flushing, Sweating Neuro: reports: Tingling, Tremors Endocrine: reports: Excessive Sweating, Flushing, Intolerance to Cold, Intolerance to Heat Hematology: reports: No Symptoms Reported Psychiatric: reports: Judgement Intact, Mood/Affect Appropiate, Orientated x3, Agitated, Anxious Other Systems: Reviewed and Negative Patient History - Patient Medical History Hx Anemia: No Hx Asthma: No Hx Chronic Obstructive Pulmonary Disease (COPD): No Hx Cancer: No Hx Cardiac Disorders: No Hx Congestive Heart Failure: No Hx Hypertension: No Hx Hypercholesterolemia: No Hx Pacemaker: No HX Cerebrovascular Accident: No Hx Seizures: No Hx Dementia: No Hx Diabetes: No Hx Gastrointestinal Disorders: No Hx Liver Disease: No Hx Genitourinary Disorders: No Hx Sexually Transmitted Disorders: No Hx Renal Disease (ESRD): No Hx Thyroid Disease: No Hx Human Immunodeficiency Virus (HIV): No Hx Hepatitis C: Yes (NOT TREATED) Hx Depression: Yes Hx Suicide Attempt: Yes (Pt tried to overdose in 2013) Hx Bipolar Disorder: Yes Hx Schizophrenia: No Other Medical History: anxiety/ptsd - Patient Surgical History Past Surgical History: No Hx Neurologic Surgery: No Hx Cataract Extraction: No Hx Cardiac Surgery: No Hx Lung Surgery: Yes (R chest tube for lung abscess in 2014 [facility]) Hx Breast Surgery: No Hx Breast Biopsy: No Hx Abdominal Surgery: No Hx Appendectomy: No Hx Cholecystectomy: Yes (1997) Hx Genitourinary Surgery: No Hx Section: No Hx Orthopedic Surgery: No Hx Hysterectomy: No Anesthesia Reaction: No - PPD History Previous Implant?: Yes Documented Results: Negative w/proof Implanted On Prior [facility] Admission?: Yes Date: 05/24/18 Results: NEGATIVE PPD to be Administered?: No - Reproductive History Patient is a Female of Child Bearing Age (11 -55 yrs old): No Last Menstrual Period: 09/28/16 Patient : No - Smoking Cessation Smoking history: Current every day smoker Have you smoked in the past 12 months: Yes Aproximately how many cigarettes per day: 20 Hx Chewing Tobacco Use: No Initiated information on smoking cessation: Yes 'Breaking Loose' booklet given: 07/11/18 - Substance & Tx. History Hx Alcohol Use: Yes Hx Substance Use: Yes Substance Use Type: Alcohol, Cocaine, Heroin Hx Substance Use Treatment: Yes (last detox [facility] 04/2018) - Substances Abused Heroin Route: Injection Frequency: Daily Amount used: 1-2 BUNDLES Age of first use: 15 Date of Last Use: 07/11/18 Cocaine Route: Smoking Frequency: Daily Amount used: $40 Age of first use: 12 Date of Last Use: 07/09/18 Alcohol Route: Oral Frequency: Daily Amount used: 1-2 PINTS OF VODKA Age of first use: 14 Date of Last Use: 07/10/18 Family Disease History - Family Disease History Family Disease History: [place]: Grandparent (stomach) Admission Physical Exam S - Vital Signs Vital Signs: Vital Signs - 24 hr 07/11/18 17:21 Temperature 97 F L Pulse Rate 78 Respiratory 18 Rate Blood Pressure 101/64 - Physical General Appearance: Yes: Appropriately Dressed, Disheveled, Moderate Distress, Tremorous, Irritable, Sweating, Anxious HEENTM: Yes: Hearing grossly Normal, Normal Voice, Nasal Congestion, Rhinorrhea Respiratory: Yes: Lungs Clear, Normal Breath Sounds, No Respiratory Distress Neck: Yes: No masses,lesions,Nodules Breast: Yes: Within Normal Limits Cardiology: Yes: Regular Rhythm, Regular Rate, S1, S2 Abdominal: Yes: Normal Bowel Sounds, Non Tender, Soft Genitourinary: Yes: Within Normal Limits Back: Yes: Normal Inspection Musculoskeletal: Yes: full range of Motion, Back pain Extremities: Yes: Normal Capillary Refill, Normal Inspection, Non-Tender, Tremors 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: Yes: Fully Oriented, Alert, Normal Response Integumentary: Yes: Normal Color, Diaphoresis, Track [place] Lymphatic: Yes: Within Normal Limits - Diagnostic (1) Cocaine dependence Current Visit: Yes Status: Chronic Qualifiers: Substance use status: uncomplicated (2) Substance induced mood disorder Current Visit: No Status: Acute (3) Bipolar 1 disorder Current Visit: No Status: Chronic (4) IVDU (intravenous drug user) Current Visit: Yes Status: Chronic Comment: TRACKS ON EXTREMITIES (5) Nicotine dependence Current Visit: Yes Status: Chronic Qualifiers: Nicotine product type: cigarettes Substance use status: uncomplicated Qualified Code(s): F17.210 - Nicotine dependence, cigarettes, uncomplicated (6) Opioid dependence with withdrawal Current Visit: Yes Status: Chronic (7) H/O bacterial endocarditis Current Visit: No Status: Resolved (8) Alcohol dependence with uncomplicated withdrawal Current Visit: Yes Status: Chronic Cleared for Admission [facility] - Detox or Rehab [facility] Level of Care: Medically Managed Detox Regimen/Protocol: Methadone/Librium S Breath Alcohol Content Breath Alcohol Content: 0 Urine Pregancy Test - Result Urine Test Results: Negative- NO Line Present Urine Drug Screen - Results Drug Screen Negative: No Urine Drug Screen Results: ALINE-Cocaine, OPI-Opiates, MTD-Methadone, FEN-Fentanyl
[2018-07-11] MEDS ORDERED: NICOTINE POLACRILEX 4 MG GUM BC PRN (18:40)
[2018-07-11] MEDS ORDERED: MAGNESIUM CITRATE 300 ML BOTTLE PO PRN (18:40)
[2018-07-11] MEDS ORDERED: P-EPHED 60MG/TRIPROLIDI 2.5MG TABLET PO PRN (18:40)
[2018-07-11] MEDS ORDERED: MAGNESIUM HYDROX 2400MG/30ML ORAL SUSPENSION 30 ML CUP PO PRN (18:40)
[2018-07-11] MEDS ORDERED: ACETAMINOPHEN 325 MG TABLET (FP) PO PRN (18:40)
[2018-07-11] MEDS ORDERED: hydrOXYzine PAMOATE 50 MG CAPSULE (FP) PO PRN (18:40)
[2018-07-11] MEDS ORDERED: MENTHOL/PHENOL 1 EACH UD MM PRN (18:40)
[2018-07-11] MEDS ORDERED: IBUPROFEN 400 MG TABLET (FP) PO PRN (18:40)
[2018-07-11] MEDS ORDERED: LOPERAMIDE HCL 2 MG CAPSULE PO PRN (18:40)
[2018-07-11] MEDS ORDERED: chlordiazePOXIDE HCL 25 MG CAPSULE PO PRN (18:40)
[2018-07-11] MEDS ORDERED: MAG HYDROX/AL HYDROX/SIMETH 30 ML UNIT-DOSE CUP PO PRN (18:40)
[2018-07-11] MEDS ORDERED: guaiFENesin/D-METHORPHAN HB 10 ML UNIT-DOSE CUPS PO PRN (18:40)
[2018-07-11] MEDS ORDERED: chlordiazePOXIDE HCL 25 MG CAPSULE PO ONE (19:00)
[2018-07-11] MEDS ORDERED: METHADONE HCL 10 MG TABLET (FOR DETOX USE ONLY) PO ONE ×2 (19:15→23:00)
[2018-07-11] MEDS ORDERED: MELATONIN 5 MG TABLETS PO PRN (22:00)
[2018-07-11] MEDS: chlordiazePOXIDE HCL 25 MG CAPSULE PO SCH (22:22)
[2018-07-11] MEDS: THIAMINE HCL 100 MG TABLET (FP) PO SCH (22:22)
[2018-07-12] MEDS: chlordiazePOXIDE HCL 25 MG CAPSULE PO SCH ×4 (05:32→22:22)
[2018-07-12 10:00] LABS: MCH 24.7 pg (25.7-33.7); MCHC 31.6 g/dl (32.0-36.0); MEAN CELL VOLUME 78.2 fl (80-96); MEAN PLT VOLUME 9.7 fl (7.5-11.1); PLATELET COUNT 244 K/MM3 (134-434); RBC 4.85 M/mm3 (3.60-5.2); RDW 16.6 % (11.6-15.6); WHITE BLOOD COUNT 6.6 K/mm3 (4.0-10.0)
[2018-07-12] MEDS ORDERED: METHADONE HCL 10 MG TABLET (FOR DETOX USE ONLY) PO SCH (10:00)
[2018-07-12] MEDS: PRENATAL VITAMINS W/ FOLIC ACID TABLET (FP) PO SCH (10:19)
[2018-07-12 10:20] LABS: ALBUMIN 2.7 g/dl (3.4-5.0); ALK PHOS 124 U/L (45-117); ANION GAP 7 MMOL/L (8-16); BILIRUBIN,TOTAL 0.2 mg/dL (0.2-1); BLOOD UREA NITROGEN 12 mg/dL (7-18); CALCIUM 8.7 mg/dL (8.5-10.1); CHLORIDE 108 mmol/L (98-107); CO2 27 mmol/L (21-32); CREATININE 0.8 mg/dL (0.55-1.3); GLUCOSE,RANDOM 94 mg/dL (74-106); POTASSIUM 4.4 mmol/L (3.5-5.1); SGOT/AST 16 U/L (15-37); SGPT/ALT 19 U/L (13-61); SODIUM 141 mmol/L (136-145); TOT PROT 6.2 g/dl (6.4-8.2)
[2018-07-12] MEDS: NICOTINE 21 MG/24 HOURS TOPICAL PATCH TD SCH (10:21)
--- NOTE | 2018-07-12 11:37 | EKG ---
Test Reason : Blood Pressure : / mmHG Vent. Rate : 075 BPM Atrial Rate : 075 BPM P-R Int : 128 ms QRS Dur : 094 ms QT Int : 412 ms P-R-T Axes : 018 034 048 degrees QTc Int : 460 ms NORMAL SINUS RHYTHM NORMAL ECG WHEN COMPARED WITH ECG OF 06-DEC-2017 12:34, NO SIGNIFICANT CHANGE WAS FOUND Confirmed by DANIELLE LYNN MD ([id number]) on 07/12/2018 11:36:54 AM Referred By: Confirmed By:DANIELLE LYNN MD
--- NOTE | 2018-07-12 13:05 | PN ---
[facility] CIWA - CIWA Score Nausea/Vomitin-No Nausea/No Vomiting Muscle Tremors: 3 Anxiety: 3 Agitation: 3 Paroxysmal Sweats: 3 Orientation: 0-Oriented Tacttile Disturbances: 0-None Auditory Disturbances: 0-None Visual Disturbances: 0-None Headache: 0-None Present CIWA-Ar Total Score: 12 BHS COWS - Scale Resting Pulse: 0= [place] 80 or Below Sweatin=Flushed/Facial Moisture Restless Observation: 1= Difficult to Sit Still Pupil Size: 0= Normal to Room Light Bone or Joint Aches: 2= Severe Diffuse Aches Runny Nose/ Eye Tearin= Runny Nose/Eyes GI Upset > 30mins: 1= Stomach Cramp Tremor Observation of Outstretched Hands: 2= Slight Tremor Visible Yawning Observation: 2= >3x During Session Anxiety or Irritability: 1=Feels Anxious/Irritable Goose Flesh Skin: 0=Smooth Skin COWS Score: 13 S Progress Note (SOAP) Subjective: sweats shakes interrupted sleep agitation sleepy tired Objective: 07/12/18 13:04 Vital Signs Temperature 98.1 F 07/12/18 10:00 Pulse Rate 79 07/12/18 10:00 Respiratory Rate 16 07/12/18 10:00 Blood Pressure 110/59 L 07/12/18 10:00 O2 Sat by Pulse Oximetry (%) Laboratory Tests 07/12/18 07/12/18 07:00 08:32 WBC 6.6 RBC 4.85 Hgb 12.0 Hct 38.0 MCV 78.2 L MCH 24.7 L MCHC 31.6 L RDW 16.6 H Plt Count 244 MPV 9.7 Sodium 141 Potassium 4.4 Chloride 108 H Carbon Dioxide 27 Anion Gap 7 L BUN 12 Creatinine 0.8 Creat Clearance w eGFR > 60 Random Glucose 94 Calcium 8.7 Total Bilirubin 0.2 AST 16 ALT 19 Alkaline Phosphatase 124 H Total Protein 6.2 L Albumin 2.7 L aaox3 ambulating no acute distress Assessment: 07/12/18 13:05 withdrawal sx Plan: continue detox increase fluids
[2018-07-12 13:14] LABS: RPR REACTIVE 1:1 (NONREACTIVE)
[2018-07-12 13:18] LABS: TREPONEMA ANTIBODY PREVIOUSLY REACTIVE (NONREACTIVE)
--- NOTE | 2018-07-12 13:35 | PN ---
[facility] Progress Note Note: The patient is 38 yo H female admitted to detox for Opioid,Alcohol dependence.According to the medical record she has history of bipolar disorder, suicidal attempt in the past.patient was seen at bedside,presented sedated, drowsy.She states that she is not on psychotropic medications and is not able to discuss her issues at present.Patient will be reevaluated when she is more awake.
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
[2018-07-12] MEDS: THIAMINE HCL 100 MG TABLET (FP) PO SCH (22:21)
[2018-07-13] MEDS: chlordiazePOXIDE HCL 25 MG CAPSULE PO SCH ×3 (06:22→17:50)
[2018-07-13] MEDS: PRENATAL VITAMINS W/ FOLIC ACID TABLET (FP) PO SCH (10:41)
[2018-07-13] MEDS: METHADONE HCL 5 MG TABLET (FOR DETOX USE ONLY) PO SCH (10:41)
[2018-07-13] MEDS: NICOTINE 21 MG/24 HOURS TOPICAL PATCH TD SCH (10:46)
--- NOTE | 2018-07-13 13:21 | PN ---
S CIWA - CIWA Score Nausea/Vomitin Muscle Tremors: 2 Anxiety: 2 Agitation: 2 Paroxysmal Sweats: 2 Orientation: 0-Oriented Tacttile Disturbances: 1-Very Mild Itch/Numbness Auditory Disturbances: 0-None Visual Disturbances: 0-None Headache: 1-Very Mild CIWA-Ar Total Score: 12 BHS COWS - Scale Resting Pulse: 0= [place] 80 or Below Sweatin= Chills/Flushing Restless Observation: 1= Difficult to Sit Still Pupil Size: 0= Normal to Room Light Bone or Joint Aches: 2= Severe Diffuse Aches Runny Nose/ Eye Tearin= Nasal Congestion GI Upset > 30mins: 1= Stomach Cramp Tremor Observation of Outstretched Hands: 2= Slight Tremor Visible Yawning Observation: 0= None Anxiety or Irritability: 1=Feels Anxious/Irritable Goose Flesh Skin: 0=Smooth Skin COWS Score: 9 BHS Progress Note (SOAP) Subjective: Abdominal cramps, interrupted sleep, tremors and sweats Objective: 07/13/18 13:22 Vital Signs 07/13/18 07/13/18 08:28 09:52 Temperature 97.7 F 98.2 F Pulse Rate 75 75 Respiratory 18 16 Rate Blood Pressure 99/68 108/66 Laboratory Last Values WBC 6.6 K/mm3 (4.0-10.0) 07/12/18 08:32 RBC 4.85 M/mm3 (3.60-5.2) 07/12/18 08:32 Hgb 12.0 GM/dL (10.7-15.3) 07/12/18 08:32 Hct 38.0 % (32.4-45.2) 07/12/18 08:32 MCV 78.2 fl (80-96) L 07/12/18 08:32 MCH 24.7 pg (25.7-33.7) L 07/12/18 08:32 MCHC 31.6 g/dl (32.0-36.0) L 07/12/18 08:32 RDW 16.6 % (11.6-15.6) H 07/12/18 08:32 Plt Count 244 K/MM3 (134-434) 07/12/18 08:32 MPV 9.7 fl (7.5-11.1) 07/12/18 08:32 Sodium 141 mmol/L (136-145) 07/12/18 07:00 Potassium 4.4 mmol/L (3.5-5.1) 07/12/18 07:00 Chloride 108 mmol/L (98-107) H 07/12/18 07:00 Carbon Dioxide 27 mmol/L (21-32) 07/12/18 07:00 Anion Gap 7 MMOL/L (8-16) L 07/12/18 07:00 BUN 12 mg/dL (7-18) 07/12/18 07:00 Creatinine 0.8 mg/dL (0.55-1.3) 07/12/18 07:00 Creat Clearance w eGFR > 60 (>60) 07/12/18 07:00 Random Glucose 94 mg/dL (74-106) 07/12/18 07:00 Calcium 8.7 mg/dL (8.5-10.1) 07/12/18 07:00 Total Bilirubin 0.2 mg/dL (0.2-1) 07/12/18 07:00 AST 16 U/L (15-37) 07/12/18 07:00 ALT 19 U/L (13-61) 07/12/18 07:00 Alkaline Phosphatase 124 U/L (45-117) H 07/12/18 07:00 Total Protein 6.2 g/dl (6.4-8.2) L 07/12/18 07:00 Albumin 2.7 g/dl (3.4-5.0) L 07/12/18 07:00 RPR Titer Reactive 1:1 (NONREACTIVE) H D 07/12/18 07:00 T.pallidum Ab (MHA) Previously reactive (NONREACTIVE) 07/12/18 07:00 Labs noted, no panic values Assessment: 07/13/18 13:23 Withdrawal sx Plan: Continue detox
[2018-07-13] MEDS: THIAMINE HCL 100 MG TABLET (FP) PO SCH (22:34)
[2018-07-13] MEDS: chlordiazePOXIDE 5 MG CAPSULE PO SCH (22:34)
[2018-07-14] MEDS: chlordiazePOXIDE 5 MG CAPSULE PO SCH ×2 (05:45→10:24)
[2018-07-14 09:24] VITALS: BP 118/68; PULSE 76; TEMP 98.2
[2018-07-14] MEDS: NICOTINE 21 MG/24 HOURS TOPICAL PATCH TD SCH (10:24)
[2018-07-14] MEDS: PRENATAL VITAMINS W/ FOLIC ACID TABLET (FP) PO SCH (10:24)
[2018-07-14] MEDS: METHADONE HCL 5 MG TABLET (FOR DETOX USE ONLY) PO SCH (10:24)
--- NOTE | 2018-07-14 11:20 | DS ---
[facility] Detox Discharge Summary Admission Date: 07/11/18 Discharge Date: 07/14/18 - History Present History: Alcohol Dependence, Opioid Dependence Additional Comments: 38 years old female admitted on 07/11/18 for alcohol and opiate withdrawal stabilization insists to leave the detox unit without apparent reason patient is alert no acute distress denies suicidal no homicidal after care nathalie cano - Physical Exam Results Vital Signs: Vital Signs Temperature 98.2 F 07/14/18 09:23 Pulse Rate 76 07/14/18 09:23 Respiratory Rate 18 07/14/18 09:23 Blood Pressure 118/68 07/14/18 09:23 O2 Sat by Pulse Oximetry (%) Pertinent Admission Physical Exam Findings: alcohol and opiate withdrawal sx Vital Signs Temperature 98.2 F 07/14/18 09:23 Pulse Rate 76 07/14/18 09:23 Respiratory Rate 18 07/14/18 09:23 Blood Pressure 118/68 07/14/18 09:23 O2 Sat by Pulse Oximetry (%) Laboratory Last Values WBC 6.6 K/mm3 (4.0-10.0) 07/12/18 08:32 RBC 4.85 M/mm3 (3.60-5.2) 07/12/18 08:32 Hgb 12.0 GM/dL (10.7-15.3) 07/12/18 08:32 Hct 38.0 % (32.4-45.2) 07/12/18 08:32 MCV 78.2 fl (80-96) L 07/12/18 08:32 MCH 24.7 pg (25.7-33.7) L 07/12/18 08:32 MCHC 31.6 g/dl (32.0-36.0) L 07/12/18 08:32 RDW 16.6 % (11.6-15.6) H 07/12/18 08:32 Plt Count 244 K/MM3 (134-434) 07/12/18 08:32 MPV 9.7 fl (7.5-11.1) 07/12/18 08:32 Sodium 141 mmol/L (136-145) 07/12/18 07:00 Potassium 4.4 mmol/L (3.5-5.1) 07/12/18 07:00 Chloride 108 mmol/L (98-107) H 07/12/18 07:00 Carbon Dioxide 27 mmol/L (21-32) 07/12/18 07:00 Anion Gap 7 MMOL/L (8-16) L 07/12/18 07:00 BUN 12 mg/dL (7-18) 07/12/18 07:00 Creatinine 0.8 mg/dL (0.55-1.3) 07/12/18 07:00 Creat Clearance w eGFR > 60 (>60) 07/12/18 07:00 Random Glucose 94 mg/dL (74-106) 07/12/18 07:00 Calcium 8.7 mg/dL (8.5-10.1) 07/12/18 07:00 Total Bilirubin 0.2 mg/dL (0.2-1) 07/12/18 07:00 AST 16 U/L (15-37) 07/12/18 07:00 ALT 19 U/L (13-61) 07/12/18 07:00 Alkaline Phosphatase 124 U/L (45-117) H 07/12/18 07:00 Total Protein 6.2 g/dl (6.4-8.2) L 07/12/18 07:00 Albumin 2.7 g/dl (3.4-5.0) L 07/12/18 07:00 RPR Titer Reactive 1:1 (NONREACTIVE) H D 07/12/18 07:00 T.pallidum Ab (MHA) Previously reactive (NONREACTIVE) 07/12/18 07:00 lab noted - Treatment Hospital Course: Detox Protocol Followed, Responded well - Medication Discharge Medications: Ambulatory Orders NK [No Known Home Medication] 12/06/17 - Diagnosis (1) Syphilis contact, treated Current Visit: Yes Status: Chronic (2) Opioid dependence with withdrawal Current Visit: Yes Status: Acute (3) Substance induced mood disorder Current Visit: Yes Status: Suspected (4) Nicotine dependence Current Visit: Yes Status: Acute Qualifiers: Nicotine product type: cigarettes Substance use status: in withdrawal Qualified Code(s): F17.213 - Nicotine dependence, cigarettes, with withdrawal (5) Alcohol dependence with uncomplicated withdrawal Current Visit: Yes Status: Acute - AMA Did Patient Leave Against Medical Advice: Yes
[2018-07-14] MEDS ORDERED: chlordiazePOXIDE HCL 10 MG CAPSULE PO SCH (23:00)
[2018-07-15] MEDS ORDERED: METHADONE HCL 10 MG TABLET (FOR DETOX USE ONLY) PO SCH (10:00)
[2018-07-16] MEDS ORDERED: METHADONE HCL 5 MG TABLET (FOR DETOX USE ONLY) PO SCH (06:00)
== END 2018-07-14 11:46 | disposition left against medical advice (07) | DRG 770 ==
LOC: YASAS 17:01 → Y6N 18:35
PROVIDERS: ADMIT Neuromusculoskeletal Medicine & OMM; ATTEND Neuromusculoskeletal Medicine & OMM
PROC: HZ2ZZZZ Detoxification Services for Substance Abuse Treatment (ICD-10-PCS; principal; 2018-07-11)
DX: F11.23 Opioid dependence with withdrawal (principal); F10.230 Alcohol dependence with withdrawal, uncomplicated; F14.20 Cocaine dependence, uncomplicated; F17.213 Nicotine dependence, cigarettes, with withdrawal; F19.24 Other psychoactive substance dependence with psychoactive substance-induced mood disorder; F31.89 Other bipolar disorder; B18.2 Chronic viral hepatitis C; Z87.42 Personal history of other diseases of the female genital tract; Z91.5 Personal history of self-harm
CPT/HCPCS: 36415; 80053; 85027; 86593; 86780; 93005; 93010

== ENCOUNTER 2018-11-17 11:12 | Inpatient (IN) | payer OTHER | END 2018-11-21 23:13 | disposition short-term general hospital (02) | LOC: YASAS 11:12 → Y3N 19:19 ==

== ENCOUNTER 2018-11-21 13:52 | Inpatient (IN) | payer OTHER ==
--- NOTE | 2018-11-21 14:09 | PDOC ---
History of Present Illness - General Chief Complaint: Nausea/Vomiting Stated Complaint: VOMITTING Time Seen by Provider: 11/21/18 14:09 History Source: Patient Exam Limitations: No Limitations - History of Present Illness Initial Comments: 11/21/18 14:10 38 year old w/ a history of HepC who presents from [facility] on her third day from detoxing off of alcohol, heroin, fentanyl with 7 episodes of initially nonbilious emesis last episode occurring while in the shower. The patient reports that this is her second time detoxing from such drugs and the last time she detoxed she had similar symptoms of nausea and vomiting. She denies any fever, chest pain, shortness of breath, cough, congestion. She complains of some diffuse abdomianl pain. She has no other complaints. Past History - Past Medical History Allergies/Adverse Reactions: Allergies Allergy/AdvReac Type Severity Reaction Status Date / Time hydromorphone [From Dilaudid] Allergy Severe Itching Verified 11/17/18 19:22 meperidine [From Demerol] Allergy Severe Itching Verified 11/17/18 19:22 Home Medications: Ambulatory Orders NK [No Known Home Medication] 12/06/17 Anemia: No Asthma: No Cancer: No Cardiac Disorders: No CVA: No COPD: No CHF: No Dementia: No Diabetes: No GI Disorders: No Disorders: No HTN: No Hypercholesterolemia: No Kidney Stones: No Liver Disease: No Seizures: No Thyroid Disease: No - Surgical History Abdominal Surgery: No Appendectomy: No Cardiac Surgery: No Cholecystectomy: Yes (1997) Lung Surgery: Yes (R chest tube for lung abscess in 2014 [facility]) Neurologic Surgery: No Orthopedic Surgery: No - Reproductive History PID: No - Suicide/Smoking/Psychosocial Hx Smoking History: Current every day smoker Have you smoked in the past 12 months: Yes Number of Cigarettes Smoked Daily: 20 Information on smoking cessation initiated: No 'Breaking Loose' booklet given: 11/17/18 Hx Alcohol Use: Yes Drug/Substance Use Hx: Yes Substance Use Type: Alcohol, Cocaine, Heroin Hx Substance Use Treatment: Yes ([facility]07/11/18 to 07/14/18) Review of Systems - Review of Systems Able to Perform ROS?: Yes Comments:: 11/21/18 16:12 GENERAL/CONSTITUTIONAL: No fever or chills. No weakness. HEAD, EYES, EARS, NOSE AND THROAT: No change in vision. No ear pain or discharge. No sore throat. CARDIOVASCULAR: No chest pain or shortness of breath RESPIRATORY: No cough, wheezing, or hemoptysis. GASTROINTESTINAL: + nausea, vomiting, No diarrhea or constipation. GENITOURINARY: No dysuria, frequency, or change in urination. MUSCULOSKELETAL: No joint or muscle swelling or pain. No neck or back pain. SKIN: No rash NEUROLOGIC: No headache, vertigo, loss of consciousness, or change in strength/ sensation. ENDOCRINE: No increased thirst. No abnormal weight change HEMATOLOGIC/LYMPHATIC: No anemia, easy bleeding, or history of blood clots. ALLERGIC/IMMUNOLOGIC: No hives or skin allergy. Is the patient limited Frisian proficient: No *Physical Exam - Vital Signs Last Vital Signs Temp Pulse Resp BP Pulse Ox 98.0 F 70 20 114/75 100 11/21/18 14:03 11/21/18 14:03 11/21/18 14:03 11/21/18 14:03 11/21/18 14:03 - Physical Exam Comments: 11/21/18 16:14 GENERAL: Awake, alert, and fully oriented, vomiting at bedside. HEAD: No signs of trauma, normocephalic, atraumatic EYES: PERRLA, EOMI, sclera anicteric, conjunctiva clear ENT: poor dentition, oropharynx clear without exudates. Moist mucosa NECK: Normal ROM, supple LUNGS: No distress, speaks full sentences, clear to auscultation bilaterally HEART: Regular rate and rhythm, normal S1 and S2, no murmurs, rubs or gallops, peripheral pulses normal and equal bilaterally. ABDOMEN: Soft, nontender, normoactive bowel sounds. No guarding, no rebound. No masses EXTREMITIES : Normal inspection, Normal range of motion, no edema. No clubbing or cyanosis. NEUROLOGICAL: Cranial nerves II through XII grossly intact. Normal speech, no focal sensorimotor deficits SKIN: Warm, Dry, normal turgor, no rashes or lesions noted ED Treatment Course - LABORATORY CBC & Chemistry Diagram: 11/21/18 15:15 11/21/18 15:15 Medical Decision Making - Medical Decision Making 11/21/18 16:12 38 year old w/ a history of HepC who presents from [facility] on her third day from detoxing off of alcohol, heroin, fentanyl with 7 episodes of initially nonbilious emesis last episode occurring while in the shower. The patient reports that this is her second time detoxing from such drugs and the last time she detoxed she had similar symptoms of nausea and vomiting. She denies any fever, chest pain, shortness of breath, cough, congestion. ED Course: r/o consider gastrenteritis liekly patient with withdrawal symptoms cbc, cmp, preg ivf, zofran, methadone, librium slight leukocytosis otherwise labs wnl 11/21/18 16:27 serum preg negative on reassessment, patient vomiting on bedside dose reglan, benadryl 11/21/18 17:03 on reassessment, patient with mild epigastric tenderness unremitting nausea nad omviting dose bentyl CT AP 11/21/18 20:37 lipase wnl pending CTAP *DC/Admit/Observation/Transfer Diagnosis at time of Disposition: Abdominal pain, Nausea & vomiting - Discharge Dispostion Condition at time of disposition: Fair Decision to Admit order: Yes - Referrals - Patient Instructions - Post Discharge Activity
[2018-11-21] MEDS ORDERED: ONDANSETRON 4 MG/2 ML VIAL IVPUSH ONE ×2 (14:28→14:45)
[2018-11-21] MEDS ORDERED: METHADONE HCL 10 MG TABLET PO ONE (14:28)
[2018-11-21] MEDS ORDERED: chlordiazePOXIDE HCL 10 MG CAPSULE PO ONE (14:29)
[2018-11-21] MEDS ORDERED: SODIUM CHLORIDE 1,000 ML IV SCH ×2 (14:30→17:15)
[2018-11-21] MEDS ORDERED: ONDANSETRON *ODT* 4 MG TABLET SL ONE (14:34)
[2018-11-21] MEDS ORDERED: ONDANSETRON 4 MG/2 ML VIAL ONE (14:47)
[2018-11-21 15:31] LABS: BASO % 0.6 % (0-2.0); EOS % 0.1 % (0-4.5); HEMATOCRIT 39.5 % (32.4-45.2); HEMOGLOBIN 12.3 GM/dL (10.7-15.3); LYMPH % 9.1 % (8-40); MCH 24.1 pg (25.7-33.7); MCHC 31.2 g/dl (32.0-36.0); MEAN CELL VOLUME 77.4 fl (80-96); MEAN PLT VOLUME 8.5 fl (7.5-11.1); MONO % 3.6 % (3.8-10.2); NEUT % 86.6 % (42.8-82.8); PLATELET COUNT 317 K/MM3 (134-434); WHITE BLOOD COUNT 16.2 K/mm3 (4.0-10.0)
--- NOTE | 2018-11-21 15:42 | PDOC ---
Documentation entered by Akanksha Crowell SCRIBE, acting as scribe for Josesito Suarez MD. Josesito Suarez MD: This documentation has been prepared by the Socrates mendoza Daisy, SCRIBE, under my direction and personally reviewed by me in its entirety. I confirm that the documentation accurately reflects all work, treatment, procedures, and medical decision making performed by me. Attending Attestation - Resident Resident Name: Mariya Gonzalez - ED Attending Attestation I have performed the following: I have examined & evaluated the patient, The case was reviewed & discussed with the resident, I agree w/resident's findings & plan - HPI HPI: 11/21/18 15:33 The patient is a 38YOF with a PMH of HepC who presents to the ER sent in from [facility] ( EtOH, heroin and fentanyl detox) who presents to the ED for nonbloody, nonbilious vomiting and nonbloody diarrhea with associated, intermittent cramping abdominal pain for the past day. Patient is on librium and methadone. Denies cp, sob, fever, chills, urinary symptoms. Allergies: hydromorphone, meperidine. Social Hx: EtOH, heroin and fentanyl use. - Physicial Exam PE: 11/21/18 16:48 Constitutional: Awake, alert, oriented. No acute distress. Cardiovascular: Regular rate. Regular rhythm. S1, S2 regular. Distal pulses are 2+ and symmetric. Pulmonary/Chest: No evidence of respiratory distress. Clear to auscultation bilaterally No wheezing, rales or rhonchi. Abdominal: (+) Mild diffuse epigastric discomfort. Soft and non-distended. No rebound, guarding or rigidity. No organomegaly. No palpable masses. Good bowel sounds. Back: No CVA tenderness. Musculoskeletal: No edema. Full range of motion in all extremities. No calf tenderness. Skin: Skin is warm and dry. 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: Alert and oriented to person, place, and time. Cranial nerves II- XII are grossly intact. Normal speech. Strength is grossly symmetric. No sensory deficits. Psychiatric: Good eye contact. Normal interaction, affect and behavior. - Medical Decision Making 11/21/18 16:52 The patient is a 38YOF with a PMH of HepC who presents to the ER sent in from [facility] ( EtOH, heroin and fentanyl detox) who presents to the ED for nonbloody, nonbilious vomiting and nonbloody diarrhea with associated, intermittent cramping abdominal pain for the past day. Patient is on librium and methadone. 11/21/18 17:01 Patient presents with profuse nausea vomiting diarrhea epigastric discomfort differential diagnosis includes opiate withdrawal versus GI illness We'll check labs observe and reassess Unable to control patient's vomiting patient will require admission for intractable emesis we'll CT abdomen pelvis to rule out other pathology. Admit for further management.
[2018-11-21 16:00] LABS: ALBUMIN 3.5 g/dl (3.4-5.0); BILIRUBIN,TOTAL 0.2 mg/dL (0.2-1); CREATININE 0.8 mg/dL (0.55-1.3); POTASSIUM 4.7 mmol/L (3.5-5.1); TOT PROT 7.9 g/dl (6.4-8.2)
[2018-11-21 16:18] LABS: PLATELET ESTIMATE ADEQUATE
[2018-11-21] MEDS ORDERED: METOCLOPRAMIDE HCL INJECTION 10 MG/2 ML VIAL IVPUSH ONE (16:26)
[2018-11-21] MEDS ORDERED: METHADONE HCL 5 MG TABLET ONE (17:00)
[2018-11-21] MEDS ORDERED: chlordiazePOXIDE 5 MG CAPSULE ONE ×2 (17:00→23:56)
[2018-11-21] MEDS ORDERED: METOCLOPRAMIDE HCL INJECTION 10 MG/2 ML VIAL ONE (17:04)
[2018-11-21] MEDS ORDERED: DICYCLOMINE HCL 20 MG/2 ML AMPUL IM ONE (17:07)
[2018-11-21] MEDS ORDERED: LORazepam 2 MG/ML SDV VIAL ONE (18:08)
--- NOTE | 2018-11-21 21:57 | PN ---
Teaching Attending Note Name of Resident: Gina Wallis ATTENDING PHYSICIAN STATEMENT I saw and evaluated the patient. I reviewed the resident's note and discussed the case with the resident. I agree with the resident's findings and plan as documented. SUBJECTIVE: Patient is a 38 year old woman with PMH of polysubstance abuse, right lung abscess, asthma, tobacco use and Hepatitis C disease who presents from [facility] on her third day of detoxing from alcohol, heroin, fentanyl with 7 episodes of initially nonbilious emesis with the last episode occurring while in the shower. The patient reports that this is her second time detoxing from such drugs and the last time she detoxed she had similar symptoms of nausea and vomiting. Being treatd at [facility] with Librium and Methadone. She had one bout of loose bowel movement. Was started on azithromycin and prednisone at [facility] 3 days ago for asthma flare up. She denies any fever, chest pain, shortness of breath, cough, congestion. She has diffuse abdomianl pain. 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 OBJECTIVE: Alert Vital Signs Period Temp Pulse Resp BP Sys/Forman Pulse Ox Last 24 Hr 98.0 F-98.8 F 70-88 18-20 114-136/75-88 99-100 HEENT: No Jaundice, eye redness or discharge, PERRLA, EOMI. Missing a lot of teeth. Normocephalic, atraumatic. External ears are normal and hearing is grossly intact. No nasal discharge. Neck: Supple, nontender. No palpable adenopathy or thyromegaly. No JVD Chest: Good effort. Clear to auscultation and percussion. Heart: Regular. No S3, rub or murmur Abdomen: Not distended, soft, nontender and no HSM. No rebound or guarding. Normal bowel sounds. Ext: Peripheral pulses intact. No leg edema. Skin: Warm and dry. No petechiae, rash or ecchymosis. Neuro: Alert. Oriented x3. CN 2-12 grossly intact. Sensation grossly intact in all four extremities and DTR are symmetric. Psych: Appropriate mood and affect. Good insight. Current Medications Generic Name Dose Route Start Last Admin Trade Name Freq PRN Reason Stop Dose Admin Sodium Chloride 1,000 mls @ 0 mls/hr 11/21/18 14:30 11/21/18 15:09 Normal Saline - IV 999 mls/hr ASDIR JUNIOR Administration Wide Open Sodium Chloride 1,000 mls @ 0 mls/hr 11/21/18 17:15 11/21/18 17:30 Normal Saline - IV 1,000 mls/hr ASDIR JUNIOR Administration Wide Open Home Medications Medication Instructions Recorded NK [No Known Home Medication] 12/06/17 Abnormal Lab Results 11/21/18 11/21/18 15:15 15:15 WBC 16.2 H MCV 77.4 L MCH 24.1 L MCHC 31.2 L Absolute Neuts (auto) 14.0 H Neutrophils % 86.6 H Monocytes % 3.6 L Monocytes % (Manual) 1 L Metamyelocytes 3 H Sodium 135 L Anion Gap 7 L BUN 20 H Random Glucose 137 H AST 13 L Lipase 70 L ASSESSMENT AND PLAN: 1. Intractable vomiting - Findings consistent with withdrawal from heroin/ fentanyl. CT scan showed mild intra and extrahepatic biliary dilatation as well as marked fecal retention which may also be contributing to her symptoms. Her EKG shows NSR with no acute ST-T wave changes. Will treat her with IV LR, IV zofran, saline enema, control pain with IV morphine and treat with clonidine PRN. Provide ongoing bowel regimen. Implement [facility] librium alcohol withdrawal protocol and do neurochecks. Implement seizure, fall and aspiration precautions. Treat with thiamine and folic acid and monitor electrolytes (Ca,Mg,K,P). Counseled patient about abstaining from alcohol and illicit drugs. Will consult public affairs specialist and refer to alcohol/drug detox upon discharge. Leukocytosis likely due to prednisone she got at [facility]. Will get stat CXR and urinalysis to rule out infection. Patient agrees to HIV testing. 2. Tobacco Use Counseled on risks associated with tobacco use. We will provide patient all the necessary assistance to facilitate smoking cessation and prescribe Nicotine patch. 3. DVT prophylaxis - Lovenox 40 mg SQ q 24 hours. 4. Advance directives - Full code
--- NOTE | 2018-11-21 22:27 | HP ---
CHIEF COMPLAINT: intractable abdominal pain and vomiting PCP: HISTORY OF PRESENT ILLNESS: Patient is a 38 y/o female with a history of hep C and asthma who presents for intractable nausea and vomiting. Patient has been at [facility] for the last few days. Patient has been vomiting on and off but reports this morning the pain was worse and she did not stop vomiting. She reports she has vomited 10 times and there has not been any blood. She has midepgastric pain before vomiting and it resolves after. She still feels nauseous. Patient first started doing drugs six months ago and she was in rehab one other time in June. 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 patient drinks 2 pints of alcohol a day, uses 3-4 bags of heroin a day, and does however much of fentanyl is in a bag a day. While in rehab she was having a cough with URI symptoms, she was started on Zithromax and prednisone. Patient denies chest pain, headache, change in vision, shortness of breath, diarrhea or weakness. ER course was notable for: (1) (2) (3) Recent Travel: denies PAST MEDICAL HISTORY: Hep C and asthma PAST SURGICAL HISTORY: Social History: Smokin pack a day Alcohol: 2 pints a day Drugs: 3-4 bags of heroin a day, and a bag of fentnyl a day Family History: Allergies hydromorphone [From Dilaudid] Allergy (Severe, Verified 11/17/18 19:22) Itching meperidine [From Demerol] Allergy (Severe, Verified 11/17/18 19:22) Itching HOME MEDICATIONS: Home Medications Medication Instructions Recorded NK [No Known Home Medication] 12/06/17 REVIEW OF SYSTEMS positive; upper epigastric abdominal pain, nausea, vomiting denies: chest pain, headache, change in vision, shortness of breath, diarrhea or weakness PHYSICAL EXAMINATION Vital Signs - 24 hr 11/21/18 11/21/18 11/21/18 14:03 18:15 20:12 Temperature 98.0 F 98.8 F Pulse Rate 70 Pulse Rate [ 88 72 Right Radial] Respiratory 20 18 20 Rate Blood Pressure 114/75 Blood Pressure 132/86 136/88 [Right Arm] O2 Sat by Pulse 100 99 99 Oximetry (%) GENERAL: Awake, alert, and fully oriented, in mild distress. HEAD: Normal with no signs of trauma. EYES: Pupils equal, round and reactive to light, pupils not constricted EARS, NOSE, THROAT: Moist mucous membranes. Patient missing most of her top teeth LUNGS: Breath sounds equal, clear to auscultation bilaterally. No wheezes, and no crackles. No accessory muscle use. HEART: Regular rate and rhythm, normal S1 and S2 without murmur, rub or gallop. ABDOMEN: Soft, tenderness to palpation over mid epigastric LOWER EXTREMITIES: 2+ pulses, warm, well-perfused. No calf tenderness. No peripheral edema. PSYCHIATRIC: Cooperative. Good eye contact. Appropriate mood and affect. SKIN:multiple tattoos and scars over upper and lower torso, some short some long , one mid sternal CBCD WBC 16.2 K/mm3 (4.0-10.0) H 11/21/18 15:15 RBC 5.10 M/mm3 (3.60-5.2) 11/21/18 15:15 Hgb 12.3 GM/dL (10.7-15.3) 11/21/18 15:15 Hct 39.5 % (32.4-45.2) 11/21/18 15:15 MCV 77.4 fl (80-96) L 11/21/18 15:15 MCHC 31.2 g/dl (32.0-36.0) L 11/21/18 15:15 RDW 15.0 % (11.6-15.6) 11/21/18 15:15 Plt Count 317 K/MM3 (134-434) 11/21/18 15:15 MPV 8.5 fl (7.5-11.1) D 11/21/18 15:15 CMP Sodium 135 mmol/L (136-145) L 11/21/18 15:15 Potassium 4.7 mmol/L (3.5-5.1) 11/21/18 15:15 Chloride 105 mmol/L (98-107) 11/21/18 15:15 Carbon Dioxide 23 mmol/L (21-32) 11/21/18 15:15 Anion Gap 7 MMOL/L (8-16) L 11/21/18 15:15 BUN 20 mg/dL (7-18) H 11/21/18 15:15 Creatinine 0.8 mg/dL (0.55-1.3) 11/21/18 15:15 Calcium 9.0 mg/dL (8.5-10.1) 11/21/18 15:15 Total Bilirubin 0.2 mg/dL (0.2-1) 11/21/18 15:15 AST 13 U/L (15-37) L 11/21/18 15:15 ALT 23 U/L (13-61) 11/21/18 15:15 Alkaline Phosphatase 103 U/L (45-117) 11/21/18 15:15 Total Protein 7.9 g/dl (6.4-8.2) 11/21/18 15:15 Albumin 3.5 g/dl (3.4-5.0) 11/21/18 15:15 ASSESSMENT/PLAN: Patient is a 38 y/o female with a history of hep C and asthma who presents for intractable nausea and vomiting, and abdominal pain. #intractable nausea, vomiting, and abdominal pain - could be 2/2 to withdrawl, could be 2/2 to constipation - CT scan: diffuse colonic retention, mild gastric distension, some free fluid in culdesac which would be anatomical - fleet enema x1 - zofran 8 q6h, QTC 436 - NPO until sympotms resolve - morphine 2mg q6h fr pain - LR @ 100 #withdrawl - from [facility] patient to receive 10 of librium tonight, would call about tomorrows dose as it will be day 5 - patient on Methadone 5 q6 - f/u with [facility] in the morning - continue folic acid and thiamine for alcohol use - patient not withdrawing at visit, CIWA 0 - seizure precautions #asthma - while at [facility] exacerbation - last dose of Azithromycin tomorrow morning - prednisone 20 mg today, 10 tomorrow to taper down - leukocytosis 2/2 to steroid use - continue albuterol nebs prn - f/u CXR #DVT ppx - lovenox 40 sq daily FEN - NPO until symptoms resolve - monitor lytes - patient agreed to STD testing if felt indicated, per pt negative hx Dispo: monitor on med-surg, would make a call to [facility] nd discuss management of methadone and librium Visit type - Emergency Visit Emergency Visit: Yes ED Registration Date: 11/21/18 Care time: The patient presented to the Emergency Department on the above date and was hospitalized for further evaluation of their emergent condition. - New Patient This patient is new to me today: Yes Date on this admission: 11/22/18 - Critical Care Critical Care patient: No
[2018-11-21] MEDS ORDERED: ALBUTEROL SO4 0.083% IH SOL 2.5 MG/3 ML VIAL.NEB. NEB PRN (22:31)
[2018-11-21] MEDS ORDERED: ONDANSETRON 4 MG/2 ML VIAL IVPB PRN (22:31)
[2018-11-21] MEDS ORDERED: IBUPROFEN 600 MG TABLET (FP) PO PRN (22:31)
[2018-11-21] MEDS ORDERED: MORPHINE SULFATE 2 MG/ML VIAL IVPUSH ONE (22:38)
[2018-11-21] MEDS ORDERED: SODIUM PHOSPHATE/NA BIPHOS 133 ML ENEMA PR ONE (22:39)
[2018-11-21] MEDS ORDERED: chlordiazePOXIDE 5 MG CAPSULE PO ONE (23:00)
[2018-11-21] MEDS ORDERED: FOLIC ACID 1 MG TABLET (FP) ONE (23:56)
[2018-11-22] MEDS: FOLIC ACID 1 MG TABLET (FP) PO SCH ×2 (00:02→10:49)
[2018-11-22] MEDS: LACTATED RINGERS SOLUTION 1,000 ML IV SCH ×2 (00:02→06:14)
[2018-11-22] MEDS ORDERED: MORPHINE SULFATE 2 MG/ML VIAL ONE (01:09)
[2018-11-22 01:40] LABS: EPI CELLS 3.7 /HPF (0-5/HPF); HYALINE CASTS 2 /lpf (0-8); URINE APPEARANCE CLEAR; URINE BACTERIA 71.1 /hpf (NEGATIVE); URINE BILIRUBIN NEGATIVE (NEGATIVE); URINE COLOR YELLOW; URINE GLUCOSE (UA) NEGATIVE (NEGATIVE); URINE KETONE NEGATIVE (NEGATIVE); URINE LEUK ESTERASE NEGATIVE (NEGATIVE); URINE NITRITE NEGATIVE (NEGATIVE); URINE PROTEIN NEGATIVE (NEGATIVE); URINE RBC 8 /hpf (0-4); URINE UROBILINOGEN 0.2 mg/dL (0.2-1.0); URINE WBC 2 /hpf (0-5)
[2018-11-22 03:22] VITALS: BMI 25.2
[2018-11-22] MEDS ORDERED: METHADONE HCL 5 MG TABLET PO ONE (06:00)
[2018-11-22 07:52] LABS: BASO % 0.4 % (0-2.0); EOS % 0.3 % (0-4.5); HEMATOCRIT 38.8 % (32.4-45.2); HEMOGLOBIN 12.4 GM/dL (10.7-15.3); LYMPH % 14.3 % (8-40); MCH 24.3 pg (25.7-33.7); MEAN PLT VOLUME 8.6 fl (7.5-11.1); MONO % 6.2 % (3.8-10.2); NEUT % 78.8 % (42.8-82.8); PLATELET COUNT 319 K/MM3 (134-434); RBC 5.11 M/mm3 (3.60-5.2); RDW 14.9 % (11.6-15.6); WHITE BLOOD COUNT 13.6 K/mm3 (4.0-10.0)
[2018-11-22 08:11] LABS: BILIRUBIN,TOTAL 0.6 mg/dL (0.2-1); CALCIUM 8.5 mg/dL (8.5-10.1); CREATININE 0.7 mg/dL (0.55-1.3); MAGNESIUM 2.2 mg/dL (1.8-2.4); PHOSPHOROUS 3.7 mg/dL (2.5-4.9); POTASSIUM 4.4 mmol/L (3.5-5.1); TOT PROT 7.1 g/dl (6.4-8.2)
[2018-11-22] MEDS ORDERED: predniSONE 10 MG TABLET (UD) PO ONE (10:00)
[2018-11-22] MEDS ORDERED: ENOXAPARIN NA (PORCINE) 40 MG/0.4 ML DISP.SYRIN SQ SCH (10:00)
[2018-11-22] MEDS ORDERED: AZITHROMYCIN 250 MG TABLET PO ONE (10:00)
[2018-11-22] MEDS ORDERED: PT OWN MED DRAWER 7, Y5N ONE (11:16)
--- NOTE | 2018-11-22 13:10 | PN ---
Teaching Attending Note Name of Resident: Cem Londono ATTENDING PHYSICIAN STATEMENT I saw and evaluated the patient. I reviewed the resident's note and discussed the case with the resident. I agree with the resident's findings and plan as documented. SUBJECTIVE: No fever or chills. No FUENTES , no Abd pain or fever . after reviewing CT scan images ( foreign body in stomach) and confronting her, she admitted to swallowing a bag of cocaine trying to hide it form police. she reported diarrhea yesterday but non today . she admits to using cocaine, injected heroin and alcohol OBJECTIVE: NAD, poor dentition. MMM CV: RRR, no MRG Lungs: CTAB Abd: soft, NT, ND , NL BS Ext: no edema, scars all over her upper and lower extremities . No erythema, no rash. ASSESSMENT AND PLAN: 38 y/o lady with h/o polysubstance abuse, asthma, R lung abscess, hepatitis C, and other problems who presented form [facility] with nausea and vomiting 1- N/V/D: could be part of her withdrawal syndrome. - will ask Dr. Riggins to guide if more detox is needed 2- Cocaine bag in stomach: foreign body in stomach on CT scan . patient admitted to ingesting cocaine bag 5 days ago. - Risk of rupture/obstruction - spoke to Dr. Corona, tele monitoring is enough - Spoke to Bernard: endoscopic removal is not possible due to risk of rupture - D/W dr. machado who advised transfer to [facility]. - will notify poison control - transfer to tele 3- Heroin and ETOH abuse/withdrawal : - finished librium and methadone yesterday. - consult Dr. Riggins 4- Leukocytosis: could be due the steroids course she received at [facility]. But she has reported cough with green sputum production, that improved on Abx given in [facility]. CTabd pelvis reviewed, and lung findings noted - cont azithro for total of 5 days ( 2 more days left) - need repeat CT of chest to evaluate changes later in 4 weeks , unless clinical course changes . also has h/o R lung abscess 5- Positive RPR: high risk sexual behavior. neg RPR 12/10. positive RPR titers starting 05/12 and increasing. have to investigate about her syphilis hx - get FTA Abs - consult ID DVT prophylaxis . lovenox
--- NOTE | 2018-11-22 13:30 | CON.GI ---
Consult Consult Specialty:: GI Referred by:: Hospitalist Service Reason for Consultation:: Possible foreign body ingestion vs. ingestion of cocaine packet - History of Present Illness Chief Complaint: Nausea and vomiting History of Present Illness: 38 F admitted from [facility] for evaluation of persistent N/V. Asked to evaluate for suspected foreign body ingestion. The primary team notes suggest that she may have ingested 5 bags of cocaine. Ms. Batista believes that any ingestion that may have occurred would have been 1-2 weeks ago (she states that she was in a fog so did not remember excatly when) as she has been in detox for polysubstance abuse. She goes on to explain that at the time of the possible ingestion, she was running away from the police because she was in possession of cocaine. She believes that she had only 1 bag of cocaine in her possession and that she may have thrown that on the ground while she was running and instead swallowed the cap to her IV drug needle. She is "almost positive" about this fact. In the ER yesterday she underwent CT scan of the abdomen that showed a hyperdensity in the stomach. She was given breakfast and lunch this morning because she was hungry and abdominal complaints improved. Asked to evaluate for endoscopic removal of ingested item. - History Source History Provided By: Patient, Medical Record Limitations to Obtaining History: Poor Historian (vague regarding the events prior to detox) - Past Medical History Hepatobiliary: Yes: Hepatitis C (untreated) ...LMP: 09/28/16 Psych: Yes: Addictions (polysubstance abuse: fentanyl, heroin, intranasal and crack cocaine, alcohol) - Past Surgical History Past Surgical History: Yes: Cholecystectomy (laparoscopic) - Alcohol/Substance Use Hx Alcohol Use: Yes - Smoking History Smoking history: Current every day smoker Have you smoked in the past 12 months: Yes Aproximately how many cigarettes per day: 20 - Social History Usual Living Arrangement: Alone ADL: Independent Occupation: Unemployed Place of : [facility] History of Recent Travel: No Home Medications - Allergies Allergies/Adverse Reactions: Allergies Allergy/AdvReac Type Severity Reaction Status Date / Time hydromorphone [From Dilaudid] Allergy Severe Itching Verified 11/17/18 19:22 meperidine [From Demerol] Allergy Severe Itching Verified 11/17/18 19:22 - Home Medications Home Medications: Ambulatory Orders NK [No Known Home Medication] 12/06/17 Family Disease History - Family Disease History Family Disease History: Other: Grandparent (Maternal GM: BCA), Father (: [place] : 45), Mother (: 31: Seizure), Brother (2, healthy), Sister (1, healthy), Son (2, healthy) Other Family History: Maternal aunt: uterine cancer. No family history of colorectal cancer Review of Systems - Review of Systems Constitutional: denies: Chills Cardiovascular: denies: Chest Pain Respiratory: denies: Cough, SOB Gastrointestinal: reports: Abdominal Pain (resolved), Nausea (resolved), Vomiting (resolved). denies: Diarrhea, Rectal Bleeding, Vomiting Blood Physical Exam-GI Vital Signs: Vital Signs Temperature 98.7 F 11/22/18 06:00 Pulse Rate 71 11/22/18 06:00 Respiratory Rate 20 11/22/18 06:00 Blood Pressure 124/63 11/22/18 06:00 O2 Sat by Pulse Oximetry (%) 99 11/22/18 03:26 Constitutional: Yes: Calm Eyes: No: Sclera Icterus Cardiovascular: Yes: Regular Rate and Rhythm. No: Murmur Respiratory: Yes: CTA Bilaterally Gastrointestinal Inspection: Yes: Scars (healed trochar scar), Other (pelvic tattoo) ...Auscultate: Yes: Normoactive Bowel Sounds ...Palpate: Yes: Soft. No: Hepatomegaly, Splenomegaly, Tenderness ...Percussion: No: Tympanitic Edema: No (No LE edema) 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: Yes: Alert Labs: CBC, BMP 11/22/18 06:46 11/22/18 06:46 Hepatic Panel Total Bilirubin 0.6 mg/dL (0.2-1) 11/22/18 06:46 AST 73 U/L (15-37) H 11/22/18 06:46 ALT 52 U/L (13-61) 11/22/18 06:46 Alkaline Phosphatase 91 U/L (45-117) 11/22/18 06:46 Albumin 3.0 g/dl (3.4-5.0) L 11/22/18 06:46 Imaging - Results Cat Scan: Report Reviewed, Image Reviewed Problem List - Problems (1) Foreign body ingestion Assessment/Plan: Ms. Batista believes that she may have swallowed the cap to her IV drug needle and that she threw the one bag of cocaine that she was carrying while running from the police. She does say, however, that she is "almost sure" that that is what occurred so there is some level of doubt. She also explains that things were foggy during that time (? high) so this raises the question of the reliability of her memory of the event. I spoke to the primary team and advised: Patient should be on strict NPO w/ IV hydration Repeat imaging needs to be performed to reassess the hyperdensity seen in prior imaging: CT scan A/P without contrast. The fact that she ate may limit the evaluation of her stomach. Given that there is a possibility that Ms. Batista may have ingested a cocaine packet, she needs to be in a monitored setting / ICU. Consideration for transfer to a tertiary care center would also be prudent. Poision control should be called and the case discussed Need to clarify if the police need to be involved in the case Code(s): T18.9XXA - FOREIGN BODY OF ALIMENTARY TRACT, PART UNSP, INIT ENCNTR
--- NOTE | 2018-11-22 18:56 | DS ---
Physical Exam: SUBJECTIVE: Patient seen and examined at bedside. pt sxs resolved tolerated PO. pt endorsed ingesting small cocaine bag 5 days ago while running away from police. pt later denies and says it was just a plastic needle cap. noted w/ foreign body in stomach on CT denies fever, chills, cp, sob, abd pain, n/v/d OBJECTIVE: Vital Signs Period Temp Pulse Resp BP Sys/Forman Pulse Ox Last 24 Hr 97.4 F-98.7 F 71-86 20-20 118-136/63-88 99-99 PHYSICAL EXAM GENERAL: Awake, alert, and fully oriented, NAD, poor dentition HEAD: Normal with no signs of trauma. EYES: Pupils equal, round and reactive to light, EOMI EARS, NOSE, THROAT: Moist mucous membranes. Patient missing most of her top teeth LUNGS: CTAB HEART: RRR, normal S1 and S2 without murmur, rub or gallop. ABDOMEN: Soft, NTND LOWER EXTREMITIES: 2+ pulses, warm, well-perfused. No calf tenderness. No peripheral edema. scars all over her upper and lower extremities, old abcesses PSYCHIATRIC: Cooperative. Good eye contact. Appropriate mood and affect. SKIN:multiple tattoos and scars over upper and lower torso, some short some long , one mid sternal LABS Laboratory Results - last 24 hr 11/22/18 11/22/18 11/22/18 01:25 01:25 06:46 WBC 13.6 H RBC 5.11 Hgb 12.4 Hct 38.8 MCV 76.0 L MCH 24.3 L MCHC 32.0 RDW 14.9 Plt Count 319 MPV 8.6 Absolute Neuts (auto) 10.7 H Neutrophils % 78.8 Lymphocytes % 14.3 D Monocytes % 6.2 Eosinophils % 0.3 D Basophils % 0.4 Nucleated RBC % 0 Sodium Potassium Chloride Carbon Dioxide Anion Gap BUN Creatinine Est GFR (CKD-EPI)AfAm Est GFR (CKD-EPI)NonAf Random Glucose Calcium Phosphorus Magnesium Total Bilirubin AST ALT Alkaline Phosphatase Total Protein Albumin Urine Color Yellow Urine Appearance Clear Urine pH 6.0 Ur Specific [place] 1.022 Urine Protein Negative Urine Glucose (UA) Negative Urine Ketones Negative Urine Blood Trace Urine Nitrite Negative Urine Bilirubin Negative Urine Urobilinogen 0.2 Ur Leukocyte Esterase Negative Urine WBC (Auto) 2 Urine RBC (Auto) 8 Urine Casts (Auto) 2 U Epithel Cells (Auto) 3.7 Urine Bacteria (Auto) 71.1 Urine HCG, Qual Negative 11/22/18 06:46 WBC RBC Hgb Hct MCV MCH MCHC RDW Plt Count MPV Absolute Neuts (auto) Neutrophils % Lymphocytes % Monocytes % Eosinophils % Basophils % Nucleated RBC % Sodium 135 L Potassium 4.4 Chloride 101 Carbon Dioxide 26 Anion Gap 8 BUN 14 Creatinine 0.7 Est GFR (CKD-EPI)AfAm 128.28 Est GFR (CKD-EPI)NonAf 110.69 Random Glucose 83 Calcium 8.5 Phosphorus 3.7 Magnesium 2.2 Total Bilirubin 0.6 AST 73 H ALT 52 Alkaline Phosphatase 91 Total Protein 7.1 Albumin 3.0 L Urine Color Urine Appearance Urine pH Ur Specific [place] Urine Protein Urine Glucose (UA) Urine Ketones Urine Blood Urine Nitrite Urine Bilirubin Urine Urobilinogen Ur Leukocyte Esterase Urine WBC (Auto) Urine RBC (Auto) Urine Casts (Auto) U Epithel Cells (Auto) Urine Bacteria (Auto) Urine HCG, Qual [id number] CT/ABDOMEN & PELVIS CT W/O CONTR Abdomen and pelvis CT without contrast Clinical information: nausea, emesis Multiplanar imaging was performed. No intravenous or enteric contrast was administered. No prior imaging studies are available at this facility for direct comparison. The partially imaged lower chest demonstrates a 1.2 cm subpleural opacity within the lateral basal segment of the right lower lobe. This focus also contains a small focus of air centrally which may be on the basis of cavitation. Focal opacity is noted within the right middle lobe medially may represent infiltrate and/or atelectasis. There is minimal to mild posterior bibasilar discoid atelectasis. No evidence of pneumoperitoneum, or bowel obstruction. A small amount of free intraperitoneal fluid is noted within the pelvic cul-de- sac. The appendix is partially visualized and demonstrates no definite abnormality. No evidence of acute diverticulitis or obvious acute colitis. There is no gross noncontrast small bowel pathology. There is no gastric distention. A 1.3 x 1 cm moderately hyperdense focus is seen within the gastric lumen at the level of the upper body (transaxial image 32 - 34). Colonic fecal retention is noted which is probably moderate to marked. The spleen demonstrates minimal to mild prominence measuring approximately 12 x 12 x 5 cm. Status post cholecystectomy. The common bile duct is dilated to the level of the ampulla with a maximum diameter of approximately 1.1 cm. No gross intraductal calculus is noted within the limitations of CT. There is mild intrahepatic biliary tract dilatation. The liver, pancreas, adrenal glands and kidneys demonstrate no obvious noncontrast abnormality. No gross lymphadenopathy is identified. Evaluation is somewhat limited due to a relative paucity of intra-abdominal fat and contiguous unopacified bowel loops. There is no aortic aneurysm. No gross pelvic soft tissue abnormality is seen. Impression: A small amount of free fluid is noted within the cul-de-sac possibly physiologic in nature. No gastric distention is noted. A nonspecific 1.3 x 1 cm moderately hyperdense nonspecific focus is noted within the gastric lumen at the level of the upper body - ? representing ingested food or medication and less likely clotted blood. Correlate clinically. Status post cholecystectomy. Mild extrahepatic and intrahepatic biliary tract dilatation is noted. Clinical/ laboratory correlation is suggested. Minimal to mild splenomegaly is seen. Diffuse colonic fecal retention is noted which is probably at least moderate to marked. Reported By: Petros Chaudhry MD 11/21/18 2048 [id number] CT/ABDOMEN & PELVIS CT W/O CONTR Abdomen and pelvis CT without contrast Clinical information given: patient swallowed bag of cocaine 5 days ago; evaluate gastric mass from prior exam Multiplanar imaging was performed. No intravenous or enteric contrast was administered. In comparison to a prior CT study of 11/21/2018 there is no longer visualization of a nonspecific 1.3 x 1 cm moderately hyperdense focus within the gastric lumen. There is also no gross evidence of a similar density within the remainder of the gastrointestinal tract allowing for limited visualization due to obscuring bowel contents. Additional evaluation utilizing endoscopy may be considered. The remainder of the exam demonstrates no obvious interval change. No evidence of pneumoperitoneum or bowel obstruction. A small amount of free intraperitoneal fluid is again seen within the pelvic cul -de-sac. Status post cholecystectomy. Mild extrahepatic and intrahepatic biliary tract dilatation. Minimal to mild splenomegaly. Diffuse colonic fecal retention which is probably at least moderate to marked. No gross evidence of acute appendicitis or diverticulitis. There is no gross noncontrast small bowel pathology. The liver, pancreas, adrenal glands and kidneys demonstrate no obvious noncontrast abnormality. There is no aortic aneurysm. No gross lymphadenopathy is seen. Evaluation is somewhat limited due to a relative paucity of intra-abdominal fat and contiguous unopacified bowel loops. No gross pelvic soft tissue abnormality is identified. Impression: In comparison to a prior CT exam of 11/21/2018 there is no longer definite visualization of a 1.3 x 1 cm nonspecific hypodense focus within the gastric lumen. Allowing for obscuring intraluminal contents no definite similar density can be identified within the remainder of the gastrointestinal tract. Intra-abdominal findings are noted as discussed above Findings are again seen within the partially imaged lower chest as discussed in the previous CT report. Reported By: Petros Chaudhry MD 11/22/18 [id number] HOSPITAL COURSE: Date of Admission:11/21/18 HPI: Patient is a 38 y/o female with a history of hep C and asthma who presents for intractable nausea and vomiting. Patient has been at [facility] detox for the last few days. Patient has been vomiting on and off but reports this morning the pain was worse and she did not stop vomiting. She reports she has vomited 10 times and there has not been any blood. She has midepgastric pain before vomiting and it resolves after. She still feels nauseous. Patient first started doing drugs six months ago and she was in rehab one other time in June. 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 patient drinks 2 pints of alcohol a day, uses 3-4 bags of heroin a day, and does however much of fentanyl is in a bag a day. While in rehab she was having a cough with URI symptoms, she was started on Zithromax and prednisone. Patient denies chest pain, headache, change in vision, shortness of breath, diarrhea or weakness. Date of Discharge: 11/22/18 38 y/o F PMH polysubstance abuse, asthma, R lung abscess, hepatitis C who presented form [facility] for intractable nausea and vomiting, and abdominal pain. Admitted intractable nausea, vomiting, and abdominal pain 2/2 withdrawal. pt tx w/ morphine, zofran, IVF, folic acid and thiamine and sxs resolved. pt afebrile and non septic appearing. CIWA 0. pt completed librium detox here and already finished methadone at [facility], consulted Dr. Riggins . pt wishes to go back to [facility] for rehab. This morning during rounds CT A/P 11/21 noted above and pt endorsed ingesting small cocaine bag 5 days ago while running away from police. pt later denies and says it was just a plastic needle cap. there is concern that CT finding may represent cocaine bag that has not passed. represents danger to pt if does not pass and ruptures or causes obstruction. Police report filed and Poison Control contacted and Dr Federico Tran [phone] recommends GI intervention via endoscope to remove bag. Contacted [facility] and spoke w/ GI Dr Haley who accepts the patient for transfer for endoscopy for exploration and removal of foreign body. CT A/P rpt today reviewed above. #asthma - while at [facility] exacerbation may be 2/2 viral URI. now resolved w / steroids, nebs ,abx - last dose of Azithromycin tomorrow morning - s/p prednisone taper, last dose of 10mg was today R mid lung density noted on CXR - CTA/P showed 1.2 cm subpleural opacity within the lateral basal segment of the right lower lobe. This focus also contains a small focus of air centrally which may be on the basis of cavitation. Focal opacity is noted within the right middle lobe medially may represent infiltrate and/or atelectasis -will need outpt CT rpt in 4 wks especially w/ URI sxs and leukocytosis ( although may be 2/2 steroids) #RPR - pos and has hx risky sex behaviour. neg RPR 12/10. positive RPR titers starting 05/12 and increasing. will need FTA Abs and further investigation for syphilis pt stable and ready for transfer to [facility] Minutes to complete discharge: 38 Discharge Summary Reason For Visit: NAUSEA AND VOMITING,ABD PAIN Current Active Problems Abdominal pain (Acute) Foreign body ingestion (Acute) Nausea & vomiting (Acute) Condition: Fair - Instructions Diet, Activity, Other Instructions: you are being transferred to [facility] for evaluation and removal of cocaine bag that you ingested last dose of azithromycin on 11/23 afternoon Referrals: Aftab Quiñonez MD [Staff Physician] - Sterling Zaidi DO [Staff Physician] - Roxanne Riggins DO [Staff Physician] - Disposition: TRANSFER ACUTE CARE/OTHER HOSP - Home Medications Comprehensive Discharge Medication List: Ambulatory Orders Albuterol 0.083% Nebulizer Carmen [Ventolin 0.083% Nebulizer Soln -] 1 amp NEB Q6H PRN amp 11/22/18 Azithromycin 500 mg PO DAILY #1 tablet 11/22/18 Folic Acid - 1 mg PO DAILY tablet 11/22/18 Ondansetron Injection [Zofran Injection] 8 mg IVPB Q6H PRN vial 11/22/18 Thiamine HCl [Vitamin B1 -] 100 mg PO HS tablet 11/22/18 This patient is new to me today: Yes Date on this admission: 11/22/18 Emergency Visit: Yes ED Registration Date: 11/21/18 Care time: The patient presented to the Emergency Department on the above date and was hospitalized for further evaluation of their emergent condition. Critical Care patient: No - Discharge Referral Referred to [facility] Med P.C.: No
[2018-11-22] MEDS ORDERED: SODIUM CHLORIDE 1,000 ML IV SCH ×2 (19:19)
[2018-11-22] MEDS ORDERED: LACTATED RINGERS SOLUTION 1,000 ML IV SCH (19:19)
[2018-11-22] MEDS ORDERED: ONDANSETRON 4 MG/2 ML VIAL IVPB PRN (19:19)
[2018-11-22] MEDS ORDERED: ALBUTEROL SO4 0.083% IH SOL 2.5 MG/3 ML VIAL.NEB. NEB PRN (19:19)
[2018-11-22 19:33] VITALS: BP 105/57; PULSE 68; TEMP 97.4
[2018-11-22] MEDS ORDERED: SODIUM PHOSPHATE/NA BIPHOS 133 ML ENEMA PR ONE (19:45)
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
[2018-11-22] MEDS ORDERED: THIAMINE HCL 100 MG TABLET (FP) PO SCH (22:00)
[2018-11-23] MEDS ORDERED: AZITHROMYCIN 250 MG TABLET PO SCH ×2 (10:00→17:07)
[2018-11-23] MEDS ORDERED: ENOXAPARIN NA (PORCINE) 40 MG/0.4 ML DISP.SYRIN SQ SCH (10:00)
--- NOTE | 2018-11-24 15:36 | EKG ---
Test Reason : Blood Pressure : / mmHG Vent. Rate : 070 BPM Atrial Rate : 070 BPM P-R Int : 160 ms QRS Dur : 096 ms QT Int : 404 ms P-R-T Axes : 022 024 027 degrees QTc Int : 436 ms NORMAL SINUS RHYTHM NORMAL ECG WHEN COMPARED WITH ECG OF 11-JUL-2018 18:45, NO SIGNIFICANT CHANGE WAS FOUND Confirmed by MARY ALTAMIRANO MD ([id number]) on 11/24/2018 3:35:56 PM Referred By: Confirmed By:MARY ALTAMIRANO MD
== END 2018-11-22 20:20 | disposition short-term general hospital (02) | DRG 254 ==
LOC: JER 13:52 → JERBED 22:47 → J5S 11-22 02:05 → J4S 11-22 18:15
PROVIDERS: ADMIT Internal Medicine; ATTEND Internal Medicine
DX: T18.2XXA Foreign body in stomach, initial encounter (principal); B19.20 Unspecified viral hepatitis C without hepatic coma; F10.230 Alcohol dependence with withdrawal, uncomplicated; F11.23 Opioid dependence with withdrawal; F14.20 Cocaine dependence, uncomplicated; J45.909 Unspecified asthma, uncomplicated; Z72.0 Tobacco use; K59.00 Constipation, unspecified; X58.XXXA Exposure to other specified factors, initial encounter; Y93.89 Activity, other specified; Y92.89 Other specified places as the place of occurrence of the external cause; Y99.8 Other external cause status; D72.829 Elevated white blood cell count, unspecified
CPT/HCPCS: 36415; 71045-TC-FY; 74176-TC; 80053; 81003; 83690; 83735; 84100; 84703; 85025; 93005; 93010; 99284-25; J7030